=== PATIENT | female | born 1950 | race Caucasian/White ===

== ENCOUNTER → 2017-03-03 | Outpatient (CLI) | payer BC ==
[~2017-03-03] MED LIST: ADVIN25050 INH; CALC-5 PO; FIBER; MULT-506 PO; NAPR-1168 PO
--- NOTE | 2017-03-03 09:16 | DIAGNOSTIC IMAGING REPORT ---
RIGHT AXILLARY ULTRASOUND CLINICAL HISTORY: Right axillary pain. Possible lymphadenopathy. COMPARISON STUDY: No previous studies for comparison. FINDINGS: Ultrasonographic evaluation the right axilla reveals a single circumscribed subcutaneous hypoechoic nodule injuring 9 mm in long axis. A definite fatty hilum was not visualized. There were no abnormalities identified in the area of clinical symptomatology. IMPRESSION: Nonspecific subcutaneous 9 x 6 x 4 mm circumscribed hypoechoic nodule. This appears unrelated to the patient's area of reported pain Electronically signed by: Tyron Altman M.D. 03/03/2017 9:14 AM Dictated Date/Time: 03/03/2017 9:11 AM
== END | disposition home or self-care (01) ==
LOC: C.ULTRBC 08:18
PROVIDERS: ATTEND Family Medicine
DX: R22.31 Localized swelling, mass and lump, right upper limb (principal)

== ENCOUNTER → 2017-03-23 | Outpatient (CLI) | payer BC ==
--- NOTE | 2017-03-23 15:14 | DIAGNOSTIC IMAGING REPORT ---
LEFT KNEE 1 OR 2 VIEWS ROUTINE CLINICAL HISTORY: Left knee pain. No known injury. COMPARISON: Left knee radiograph August 24, 2014. FINDINGS: Alignment of left knee is anatomic. There is no fracture or suspicious lesion. There is a small to moderate left knee joint effusion. There is minimal medial compartment joint space narrowing. There is mild patellofemoral joint space narrowing with osteophytosis. IMPRESSION: 1. No acute fracture. 2. Small to moderate left knee joint effusion. 3. Moderate left knee osteoarthritis. Electronically signed by: Deep Qureshi M.D. 03/23/2017 3:13 PM Dictated Date/Time: 03/23/2017 3:08 PM
== END | disposition home or self-care (01) ==
LOC: C.RADBC 13:46
PROVIDERS: ATTEND Nurse Practitioner Family
DX: M25.562 Pain in left knee (principal); M25.462 Effusion, left knee; M17.12 Unilateral primary osteoarthritis, left knee

== ENCOUNTER → 2017-06-04 | Outpatient (CLI) | payer BC ==
--- NOTE | 2017-06-04 15:42 | MAMMOGRAPHY REPORT ---
BILATERAL DIGITAL SCREENING MAMMOGRAM TOMOSYNTHESIS WITH CAD: 06/04/2017 CLINICAL HISTORY: Routine screening. Patient has no complaints. TECHNIQUE: Breast tomosynthesis in addition to standard 2D mammography was performed. Current study was also evaluated with a Computer Aided Detection (CAD) system. COMPARISON: Comparison is made to exams dated: 05/29/2016 mammogram, 05/28/2015 mammogram, 05/24/2014 ma mmogram, 05/23/2013 mammogram, 05/18/2012 mammogram, and 10/30/2011 aspiration - [facility] nter. BREAST COMPOSITION: There are scattered areas of fibroglandular density in both breasts. FINDINGS: There are a few benign-appearing calcifications in the breasts. A nodular asymmetry in the lateral right breast appears similar on prior mammograms dating back to at least 2008, therefore lik hector benign. No new suspicious mass, architectural distortion or cluster of microcalcifications is se en. IMPRESSION: ACR BI-RADS CATEGORY 1: NEGATIVE There is no mammographic evidence of malignancy. A 1 year screening mammogram is recommended. The pa tient will receive written notification of the results. Approximately 10% of breast cancers are not detected with mammography. A negative mammographic report should not delay biopsy if a clinically suggestive mass is present. Shruthi Kwon M.D. ay/:06/04/2017 15:35:21 Child Welfare Counselor: Melissa BOOTH([place])(Lisa), [facility] letter sent: Normal 1/2 BI-RADS Code: ACR BI-RADS Category 1: Negative
== END | disposition home or self-care (01) ==
LOC: C.MAMM 08:44
PROVIDERS: ATTEND Family Medicine
DX: Z12.31 Encounter for screening mammogram for malignant neoplasm of breast (principal)

== ENCOUNTER → 2017-08-11 | Outpatient (CLI) | payer BC | END | disposition home or self-care (01) | LOC: C.RDSM 10:57 | PROVIDERS: ATTEND Orthopaedic Surgery Sports Medicine | DX: M79.671 Pain in right foot (principal) ==

== ENCOUNTER → 2017-08-17 | Outpatient (CLI) | payer BC ==
--- NOTE | 2017-08-17 10:07 | DIAGNOSTIC IMAGING REPORT ---
MRI OF THE RIGHT FOOT WITHOUT IV CONTRAST CLINICAL HISTORY: Right lateral foot pain. COMPARISON STUDY: Radiographs of the right foot dated 08/11/2017. TECHNIQUE: MRI of the right foot is performed utilizing various T1 and T2-weighted sequences in the axial, sagittal, and coronal planes. IV contrast was not administered for this examination. FINDINGS: There is marrow edema identified within the base and proximal shaft of the fifth metatarsal. This is deep to the indicated site of interest. There is a questionable non-distracted fracture line involving the proximal shaft of the fifth metatarsal. This is best seen on axial images 30 of 57 and sagittal image 7 of 28. This may represent a stress reaction versus non-distracted stress fracture. Additional foci of marrow edema are present between the second and third tarsometatarsal joints consistent with arthritic change. Mild cystic degenerative change is noted. Cystic degenerative change is also seen in the first metatarsal head. There is no evidence of Lisfranc injury. The anterior and posterior tendons at the ankle appear intact. There is mild thickening and tendinopathy of the peroneus longus tendon with mild partial-thickness tearing as it passes adjacent to the calcaneus. The peroneus brevis tendon appears intact. Enthesopathy is noted at the base of the fifth metatarsal. There is no ankle joint effusion. The Achilles tendon is intact as visualized. There is maintenance of normal fat within the sinus tarsi. The anterior talofibular ligament appears intact, as do the deltoid and spring ligaments. The regional musculature is normal in bulk and signal intensity. There is mild thickening of the medial band of the plantar fascia with faint surrounding edema. A plantar calcaneal enthesophyte is noted. IMPRESSION: 1. There is marrow edema identified in the base and proximal shaft of the fifth metatarsal. This is deep to the cutaneous marker and likely represents a stress reaction/non-distracted stress fracture. 2. Findings suggest mild plantar fasciitis involving the medial bundle of the plantar fascia. 3. There is tendinopathy with mild partial thickness tearing of the peroneus longus tendon. 4. Arthritic change in the midfoot as above, greatest at the second and third tarsometatarsal joints. Dictated: 08/17/2017 9:32 AM Transcribed: 08/17/2017 10:06 AM Anupam Electronically signed by: Delroy Deras M.D. 08/17/2017 10:23 AM Dictated Date/Time: 08/17/2017 9:32 AM
== END | disposition home or self-care (01) ==
LOC: C.MRI 07:35
PROVIDERS: ATTEND Orthopaedic Surgery Sports Medicine
DX: M79.671 Pain in right foot (principal); R60.0 Localized edema; M76.71 Peroneal tendinitis, right leg; M19.071 Primary osteoarthritis, right ankle and foot

== ENCOUNTER → 2018-06-10 | Outpatient (CLI) | payer BC ==
[~2018-06-10] MED LIST changes: -NAPR-1168 PO; +NAPR550T61 PO
--- NOTE | 2018-06-10 16:01 | MAMMOGRAPHY REPORT ---
BILATERAL DIGITAL SCREENING MAMMOGRAM TOMOSYNTHESIS WITH CAD: 06/10/2018 TECHNIQUE: The study was acquired using full field digital technology and interpreted from soft copy. Breast tomosynthesis in addition to standard 2D mammography was performed. Current study was also ev aluated with a Computer Aided Detection (CAD) system. COMPARISON: Comparison is made to exams dated: 05/29/2016 mammogram, 05/28/2015 mammogram, 05/24/2014 ma mmogram, 05/18/2012 mammogram, 10/30/2011 aspiration, and 06/04/2017 mammogram - [facility] enter. BREAST COMPOSITION: There are scattered areas of fibroglandular density in both breasts. FINDINGS: No suspicious masses, calcifications, or areas of architectural distortion are noted in either breast . There has been no significant interval change compared to prior exams. Bilateral lateral breast as ymmetries are stable. IMPRESSION: ACR BI-RADS CATEGORY 2: BENIGN There is no mammographic evidence of malignancy. A 1 year screening mammogram is recommended.( 019) The patient will receive written notification of the results. Some breast cancers are not detected with mammography. A negative mammographic report should not dm y biopsy if a clinically suggestive mass is present. Olivia Brown M.D. ah/:06/10/2018 09:01:41 Publisher Assistant: RT Rosalba([place])(M), [facility] letter sent: Normal 1/2 BI-RADS Code: ACR BI-RADS Category 2: Benign
== END | disposition home or self-care (01) ==
LOC: C.MAMM 08:44
PROVIDERS: ATTEND Family Medicine
DX: Z12.31 Encounter for screening mammogram for malignant neoplasm of breast (principal)

== ENCOUNTER 2019-08-30 04:57 | Inpatient (IN) ==
--- NOTE | 2019-08-04 16:11 | PAT Medication Instructions ---
Medication Instructions Date of Service August 04, 2019 Home Medications albuterol sulfate [Proventil HFA] 2 puff INHALATION QID PRN calcium carbonate-vitamin D3 [Calcium 600 + D(3)] 1 cap PO BID calcium polycarbophil [Fiber-Lax] 625 mg PO QAM fluticasone propion-salmeterol [Advair Diskus] 1 inh INHALATION BID PRN meloxicam 7.5 mg PO QAM prednisolone acetate [Pred Forte] 1 drp OPHTHALMIC (EYE) DAILY rizatriptan [Maxalt] 10 mg PO UD PRN ASK your surgeon for instructions meloxicam 7.5 mg PO QAM DO NOT take the morning of surgery calcium carbonate-vitamin D3 [Calcium 600 + D(3)] 1 cap PO BID calcium polycarbophil [Fiber-Lax] 625 mg PO QAM Take morning of surgery With a small sip of water, OTHERWISE NOTHING TO EAT OR DRINK AFTER MIDNIGHT: albuterol sulfate [Proventil HFA] 2 puff INHALATION QID PRN (use if needed; please bring with you to hospital day of surgery if possible) fluticasone propion-salmeterol [Advair Diskus] 1 inh INHALATION BID PRN (if needed) rizatriptan [Maxalt] 10 mg PO UD PRN (if needed) Take evening before surgery albuterol sulfate [Proventil HFA] 2 puff INHALATION QID PRN (if needed) calcium carbonate-vitamin D3 [Calcium 600 + D(3)] 1 cap PO BID fluticasone propion-salmeterol [Advair Diskus] 1 inh INHALATION BID PRN (if needed) rizatriptan [Maxalt] 10 mg PO UD PRN (if needed) Other Notes If you have any questions please call us at [phone] or [phone] or [phone] or [phone]
--- NOTE | 2019-08-08 14:44 | Anesthesiology Consultation ---
Date of Service August 08, 2019 Assessment & Plan (1) Encounter for pre-operative examination: - Awaiting review preop testing (labs). - Awaiting surgeon-ordered PCP clearance done 08/05 (Dr. Simons). Chart Review Chart Review: Patient seen in Pre Admission Testing Teaching & Discussion Pre-Anesthesia Teaching/Discussion Notes: Instructed NPO after midnight before surgery,except medications with 15 cc of water. Medication instructions provided according to the PAT guidelines. History Surgery Operation Date: 08/30/19 07:00 Proposed Procedures p Right Total Knee Arthroplasty - Ralph El Siu MD Height/Weight Height: 5 ft 9 in Weight: 90.2 kg Allergies Allergy/AdvReac Type Severity Reaction Status Date / Time Tetanus Vaccines and Toxoid Allergy Severe Anaphylaxis Verified 08/01/19 10:38 Penicillins Allergy Intermediate breathing Unverified 08/08/19 14:43 issues Medications Home Medications Medication Instructions Recorded Confirmed Last Taken albuterol sulfate [Proventil HFA] 2 puff INHALATION QID PRN 08/01/19 08/01/19 Unknown calcium carbonate-vitamin D3 1 cap PO BID 08/01/19 08/01/19 Unknown [Calcium 600 + D(3)] calcium polycarbophil [Fiber-Lax] 625 mg PO QAM 08/01/19 08/01/19 Unknown fluticasone propion-salmeterol 1 inh INHALATION BID PRN 08/01/19 08/01/19 Unknown [Advair Diskus] meloxicam 7.5 mg PO QAM 08/01/19 08/01/19 Unknown prednisolone acetate [Pred Forte] 1 drp OPHTHALMIC (EYE) DAILY 08/01/19 08/01/19 Unknown rizatriptan [Maxalt] 10 mg PO UD PRN 08/01/19 08/01/19 Unknown Past Medical History Medical History Asthma stable Cervical cancer s/p hysterectomy (no chemo/XRT) Diverticulitis 5 years ago Glaucoma "pre-glaucoma" Headache Maxalt PRN Osteoarthritis Skin cancer, basal cell s/p Moh's procedure (nose) Spinal stenosis Exercise / Class Metabolic Activity II 4-5 Yardwork/Stairs/Walk up hill Past Family History Family History Aunt Family history of diabetes mellitus Mother Family hx of colon cancer Past Surgical History Surgical History Cornea transplant recipient RIGHT/LEFT H/O total hysterectomy History of arthroscopy RT/LEFT KNEE History of colonoscopy History of tonsillectomy Barton teeth removed Past Anesthesia History No Hx of Anesthesia Complications and No Family Hx of Anesthesia Complications History of PONV No Hx of PONV and No Hx of Motion Sickness Social History Smoking Status: Never smoker Do You Dip or Chew Tobacco: No Hx Alcohol Use: No Hx Substance Use: No substance use type: does not use Review of Systems Patient denies chest pain, shortness of breath, dyspnea on exertion, reflux, cough, wheezing, palpitations. Physical Exam Vital Signs VITALS BP 109/71 P 68 TEMP 98.4 SP02 94%RA RESP 18 PHYSICAL Full neck and c-spine range of motion. Full TMJ range of motion. TMD 3 finger breaths Mallampati Score 3 Dentition: intact, several crowns "all over" Lungs: clear throughout to auscultation Cardiac: regular rate and rhythm, no murmurs noted Spine: normal Carotid arteries: negative bruit Extremities: no edema Testing Electrocardiogram Date: 12/13/18 SR at 66bpm. NS ST/TWA.
[2019-08-08 15:55] LABS: Basophils # (auto) 0.04 K/uL (0-0.2); Basophils % (auto) 0.6 %; Eosinophils # (auto) 0.31 K/uL (0-0.5); Eosinophils % (auto) 4.9 %; Hematocrit (blood only) 40.2 % (37-47); Immature Granulocytes # (auto) 0.01 K/uL (0.00-0.02); Immature Granulocytes % (auto) 0.2 %; Lymphocytes # (auto) 1.38 K/uL (1.2-3.4); Mean Corpuscular Hemoglobin 28.6 pg (25-34); Mean Corpuscular Hgb Conc 32.3 g/dL (32-36); Mean Corpuscular Volume 88.4 fL (80-100); Mean Platelet Volume 12.2 fL (7.4-10.4); Monocytes # (auto) 0.48 K/uL (0.11-0.59); Monocytes % (auto) 7.6 %; Neutrophils # (auto) 4.06 K/uL (1.4-6.5); Neutrophils % (auto) 64.7 %; Platelet Count 210 K/uL (130-400); RDW Coefficient of Variation 13.9 % (11.5-14.5); RDW Standard Deviation 45.1 fL (36.4-46.3); Red Blood Count 4.55 M/uL (4.2-5.4); White Blood Count 6.28 K/uL (4.8-10.8)
[2019-08-08 16:04] LABS: Albumin Level 3.6 gm/dl (3.4-5.0); BUN Creatinine Ratio 17.5 (10-20); Bilirubin Direct 0.1 mg/dl (0-0.2); Calcium 8.9 mg/dl (8.5-10.1); Creatinine Clr Calc Pharmacy 75.8 ml/min; Est GFR (African American) 81.6; Est GFR (Non-African American) 70.4; Potassium 3.9 mmol/L (3.5-5.1)
[2019-08-08 16:07] LABS: Bilirubin,Total 0.6 mg/dl (0.2-1); Total Protein 6.9 gm/dl (6.4-8.2)
[2019-08-08 16:10] LABS: Partial Thromboplastin Time 27.3 Seconds (21.0-31.0); Prothrombin Time 10.3 Seconds (9.0-12.0)
[2019-08-30] MEDS ORDERED: TRANEXAMIC ACID 1,000 MG **IV Pre-op IV SCH (06:00)
[2019-08-30] MEDS ORDERED: CeleBREX 200 MG CAP PO SCH (06:00)
[2019-08-30] MEDS ORDERED: ROPIVACAINE 0.5% HCL/PF 150 MG, BUPIVACAINE 0.5% MPF 30 ML, EPINEPHrine 0.15 MG, Ketoro... INFIL SCH (06:00)
[2019-08-30] MEDS ORDERED: LR 60ML/HR IV SCH (06:00)
[2019-08-30] MEDS ORDERED: LR 500ML BOLUS, THEN 15ML/HR IV SCH (06:00)
[2019-08-30] MEDS ORDERED: CEFAZOLIN 2000MG 2,000 MG/15 ML SYR IV SCH (06:00)
[2019-08-30] MEDS ORDERED: BUPIVACAINE 0.5 % 5 MG/1 ML PF 10ML VIAL ONE (06:28)
[2019-08-30] MEDS ORDERED: EPINEPHrine INJ 1 MG/ML AMP ONE (06:28)
[2019-08-30] MEDS ORDERED: ROPIVACAINE 0.5% 5 MG/ML 30 ML VIAL ONE (06:28)
[2019-08-30] MEDS ORDERED: TRANEXAMIC ACID 1,000 MG **IV Intra-op IV SCH (06:30)
--- NOTE | 2019-08-30 06:35 | History & Physical Bridge Note ---
Date of Service August 30, 2019 History & Physical Bridge Note I have examined the patient, reviewed the History & Physical and in the interval since the performance of the History & Physical I have noted the following changes of clinical significance: no changes noted
[2019-08-30] MEDS ORDERED: MIDAZOLAM HCL 1 MG/ML 2ML VIAL ONE (06:40)
[2019-08-30] MEDS ORDERED: LIDOCAINE HCL 2% 2 ML VIAL/AMP(20MG/ML) INFIL ONE (06:40)
[2019-08-30] MEDS ORDERED: PROPOFOL IV EMULSION 10 MG/ML 20 ML VIAL IV ONE (06:40)
[2019-08-30] MEDS ORDERED: fentaNYL citrate 100 MCG/2 ML VIAL ONE (06:40)
[2019-08-30] MEDS ORDERED: ePHEDrine sulfate 50 MG/ML AMP IV PRN (06:49)
[2019-08-30] MEDS ORDERED: ONDANSETRON INJ 2 MG/ML 2 ML VIAL IV PRN ×2 (06:49→10:05)
[2019-08-30] MEDS ORDERED: HYDROmorphone INJ 1 MG/ML SYRINGE IV PRN ×2 (06:49→10:05)
[2019-08-30] MEDS ORDERED: ATROPINE SULFATE 0.1 MG/ML 10ML SYR IV PRN (06:49)
[2019-08-30] MEDS ORDERED: fentaNYL citrate 100 MCG/2 ML VIAL IV PRN (06:49)
[2019-08-30] MEDS ORDERED: ORTHO JOINT ANESTHETIC ONE (06:55)
[2019-08-30] MEDS ORDERED: HYDROmorphone INJ 2 MG/ML SYR/VIAL ONE (07:49)
--- NOTE | 2019-08-30 09:48 | Post Operative Brief Note ---
Immediate Post Op Note v1 Date of Surgery August 30, 2019 Pre & Post Diagnosis Operation Date: 08/30/19 07:00 Pre-Op Diagnosis: Osteoarthritis of Knee, Right Knee Post-Op Diagnosis: Osteoarthritis of Knee, Right Knee I identified the patient and participated in the time-out.: Yes Procedure Operation Date: 08/30/19 07:00 Actual Procedures p Right Total Knee Arthroplasty(Right) - Ralph Siu MD Surgeon Ralph Siu MD Personal Lines Account Manager Minnie Lane PA-C (No fellow avail) Estimated Blood Loss 120 Findings Consistent with Post-Op Diagnosis Fluids 800 cc Specimens Right knee contents Anesthesia Type General Regional Complications none
--- NOTE | 2019-08-30 09:48 | Operative Report ---
Post Operative Report Pre & Post Diagnosis Operation Date: 08/30/19 07:00 Pre-Op Diagnosis: Osteoarthritis of Knee, Right Knee Post-Op Diagnosis: Osteoarthritis of Knee, Right Knee I identified the patient and participated in the time-out.: Yes Procedure Operation Date: 08/30/19 07:00 Actual Procedures p Right Total Knee Arthroplasty(Right) - Ralph Siu MD Surgeon Ralph Siu MD Harness Worker Minnie Lane PA-C (No fellow avail) Estimated Blood Loss 120 Findings See Below Examined Under Anesthesia: ROM -- There was 5 degrees to 135 degrees of flexion Ligamentous examination -- revealed stable Luz Marina, posterior drawer, varus and valgus stress at 0 and 30 degrees. [place] Type IV changes of patella and medial compartment, type III changes of the trochlea and lateral femoral condyle, type II changes of the lateral tibial plateau. Fluids 800 cc Specimens Right knee contents Drains n/a Anesthesia Type General Regional Complications none Indications This is a 69-year-old female who has clinical and radiographic findings consistent with osteoarthritis of the a right knee. I recommended that a right total knee replacement be performed. The patient understands the risks of surgery, which include but not limited to: bleeding, infection, re-operation, damage to nerves and arteries, continued knee pain, knee stiffness, DVT, and . The patient understands all of these instructions and explanations, all of his questions have been satisfactorily addressed and the patient has elected to proceed. Informed consent was signed. Description of Procedure IMPLANTS: 1. Femur: Triathlon #4 Right PS. 2. Tibia: Triathlon #3 [place]. 3. Insert: Triathlon #3 x 11 mm PS X3 poly. 4. Patella: Triathlon A32 x 10 mm X3 poly. 5. Simplex cement. Procedure: After identifying the correct patient, the patient was taken to the Operating Room and placed in the supine position after general anesthesia and adductor canal nerve block was administered. My initials and a multidisciplinary time- out were used to identify the right leg as the correct operative limb. A tourniquet was placed high in the thigh. Prior to the incision, 2 grams of intravenous Ancef were given. The right leg was then prepped and draped in a standard sterile fashion. An Esmarch was used to exsanguinate the leg and the tourniquet was inflated to 250 mmHg. The planned mid-line 20 cm incision was created exposing the extensor mechanism. The medial parapatellar arthrotomy was made and the patella was everted. The patella was addressed first. It was prepared by reaming from 22 mm down to 12 mm. An A32 button was found to fit best. The peg holes were made in the standard fashion. The femur was addressed next and the guide katia was placed intramedullary. The initial cutting block was placed with 5 degrees of valgus and removing 10 mm for the anterior cut. The cut was made and the 4-in-1 cutting block for a size 4 femur was placed. These cuts and the cuts to place the box were made in the standard fashion. Our attention was then drawn to the tibia cut with the external cutting guide, taking 4 mm from the medial low side. There was sufficient extension and flexion gap to fit a 11 mm spacer. A #3 Tibial baseplate fit well. A trial with a 11 mm spacer showed excellent stability in both flexion and extension, with good ligament balance. Range of motion of 0-130 degrees. The tibial baseplate was pinned and the final preparation for the keel and stem was made. All the trial components were tested again, with good stability and thumbs free tracking of the patella. All components were removed. The tourniquet was deflated. Hemostasis was obtained. 90 ml of total knee cocktail were injected into the soft tissues and periosteum. A bone plug was placed in the femur and covered with bone wax. After a 15 minute break, the limb was exsanguinated again and the tourniquet was re-inflated. All surfaces were copiously irrigated prior to placement of the components. The femoral component and Tibial baseplate were placed with the first batch of cement and a 11 mm trial placed. Next the patellar button was placed using Simplex cement. Again with the 11 mm trial poly was placed and the range of motion and stability were unchanged. Once the cement had cured, the 11 mm X3 poly was placed. The extensor mechanism was closed with 1-0 and 0 Vicryl with the knee bent approximately 60 degrees in a standard fashion. The peritenon and deep fascia was closed with 2-0 Vicryl. The subcutaneous layer was closed with 3-0 Vicryl. The skin was closed with Zipline. The limb was cleaned and dried. 4x4 dressing was placed over top followed by ABDs, sterile Webril, and a foot to thigh Randy bandage. The patient was then transferred to the Recovery Room in stable condition. The sponge and needle counts were correct. POST-OP INSTRUCTIONS: The patient will be WBAT. The patient will be admitted to the hospital. The patient will use the knee immobilizer when ambulating and standing until good quad control is achieved. Labs will be obtained during the stay. DVT prophylaxis will included aspirin 81 mg twice a day for 6 more weeks, TEDs, and mechanical foot pumps. The dressing will be changed prior to their discharge or postop day #2 and covered with a Silverlon dressing, whichever comes first. I attest to the content of the Intraoperative Record and any orders documented therein. Any exceptions are noted below.
[2019-08-30] MEDS ORDERED: RIZATRIPTAN BENZOATE 10 MG TAB PO PRN (10:05)
[2019-08-30] MEDS ORDERED: MAGNESIUM HYDROXIDE SUSP 30 ML UDC PO PRN (10:05)
[2019-08-30] MEDS ORDERED: ALBUTEROL HFA 8 GM INHALER INH PRN (10:05)
[2019-08-30] MEDS ORDERED: SODIUM CHLORIDE 0.9% 1000ML 1,000 ML IV SCH (10:05)
[2019-08-30] MEDS ORDERED: DiphenhydrAMINE HCL 50 MG/ML VIAL IV PRN (10:05)
[2019-08-30] MEDS ORDERED: bisacodyL 10 MG SUPP PR PRN (10:05)
[2019-08-30] MEDS ORDERED: FLUTICASONE/SALMETEROL (ADVAIR) 500/50 INH 14 PUFF INH PRN (10:05)
[2019-08-30] MEDS ORDERED: NALOXONE HCL 0.4 MG/1 ML VIAL/CARP IV PRN (10:05)
[2019-08-30] MEDS ORDERED: METOCLOPRAMIDE HCL INJ 5 MG/ML 2 ML VIAL IV PRN (10:05)
[2019-08-30] MEDS ORDERED: ALUMINUM/MAGNESIUM SUSP 30 ML UDC PO PRN (10:05)
--- NOTE | 2019-08-30 10:21 | XRay Report ---
XR knee RT 2V routine CLINICAL HISTORY: 69 years-old Female presenting with Surgical Post Op. TECHNIQUE: Frontal and lateral views of the right knee were obtained. COMPARISON: 08/08/2019. FINDINGS: Postsurgical changes of total right knee arthroplasty with patellar resurfacing. No periprosthetic fr acture or lucency. No malalignment. Expected intra-articular and soft tissue emphysema. Mild surround ing soft tissue swelling. IMPRESSION: Expected postsurgical changes status post total right knee arthroplasty with patellar resurfacing. Electronically signed by: Mu Mei M.D. 08/30/2019 10:20 AM
--- NOTE | 2019-08-30 10:44 | Anesthesiology Progress Note ---
Date of Service August 30, 2019 Anesthesia Post Procedure Vital Signs Vital Signs: Temp Pulse Pulse Pulse Resp BP BP 08/30/19 10:36 85 14 118/62 08/30/19 10:35 89 12 08/30/19 10:31 66 14 08/30/19 10:30 66 14 119/65 08/30/19 10:26 85 14 08/30/19 10:25 75 14 128/76 08/30/19 10:21 80 17 130/70 08/30/19 10:20 14 08/30/19 10:16 84 14 08/30/19 10:15 82 14 139/69 08/30/19 10:11 86 12 08/30/19 10:10 75 14 134/76 08/30/19 10:06 85 14 123/81 08/30/19 10:05 90 15 08/30/19 10:01 68 13 08/30/19 10:00 69 13 124/63 08/30/19 09:57 68 14 08/30/19 09:56 36.7 C 68 73 14 120/62 120/62 08/30/19 05:22 37 C 73 18 BP Pulse Ox 08/30/19 10:36 99 08/30/19 10:35 96 08/30/19 10:31 95 08/30/19 10:30 94 08/30/19 10:26 97 08/30/19 10:25 92 08/30/19 10:21 95 08/30/19 10:20 98 08/30/19 10:16 99 08/30/19 10:15 100 08/30/19 10:11 100 08/30/19 10:10 99 08/30/19 10:06 100 08/30/19 10:05 100 08/30/19 10:01 99 08/30/19 10:00 99 08/30/19 09:57 98 08/30/19 09:56 98 08/30/19 05:22 139/89 97 Pain Intensity Right Knee: Pain Intensity: 3 Transfer of Care Handoff Completed per policy Notes Mental Status: alert / awake / arousable and participated in evaluation Patient Amnestic to Procedure: Yes Nausea / Vomiting: adequately controlled Pain: adequately controlled Airway Patency, RR, SpO2: stable & adequate BP & HR: stable & adequate Hydration State: stable & adequate Anesthetic Complications: no major complications apparent and Pt Satisfied with anesthetic care
[2019-08-30] MEDS ORDERED: DEXAMETHASONE SOD INJ 4 MG/ML VIAL ONE (10:48)
[2019-08-30] MEDS ORDERED: ONDANSETRON INJ 2 MG/ML 2 ML VIAL ONE (10:49)
[2019-08-30] MEDS: OXYCODONE HCL IR 5 MG TAB (IMMEDIATE RELEASE) PO PRN ×3 (11:51→20:46)
--- NOTE | 2019-08-30 11:58 | Operative Report ---
Post Operative Report Pre & Post Diagnosis Operation Date: 08/30/19 07:00 Pre-Op Diagnosis: Osteoarthritis of Knee, Right Knee Post-Op Diagnosis: Osteoarthritis of Knee, Right Knee I identified the patient and participated in the time-out.: Yes Procedure Operation Date: 08/30/19 07:00 Actual Procedures p Right Total Knee Arthroplasty(Right) - Ralph Siu MD Surgeon Dr Siu Armor Reconnaissance Vehicle Crewman Minnie Lane PA-C (No fellow avail) Estimated Blood Loss 120 Findings Consistent with Post-Op Diagnosis Specimens bone and soft tissue Complications none Indications See Dr Siu operative report for full details. Description of Procedure See Dr Siu operative report for full details. I was event marketing assistant during entire case to include prepping, draping, limb and instrument handling, wound closure, dressings. I attest to the content of the Intraoperative Record and any orders documented therein. Any exceptions are noted below.
[2019-08-30] MEDS ORDERED: ACETAMINOPHEN 500 MG TAB PO PRN (12:00)
[2019-08-30] MEDS: CEFAZOLIN 2000MG 2,000 MG/15 ML SYR IV SCH ×2 (14:38→22:19)
--- NOTE | 2019-08-30 16:23 | Orthopedic Progress Note ---
Date of Service August 30, 2019 Assessment & Plan (1) Knee osteoarthritis: POD # 0, s/p Right TKA, doing as well as expected. Regular diet. WBAT with walker, brace for 48 hours or until good quad control. Dressing changed to Silverlon POD # 2 or prior to discharge, whichever comes first. PT/OT Continue pain control. DVT Prophylaxis: TEDs on operative leg for minimum 2 weeks, foot pumps while in hospital, ASA 81 mg BID for 6 weeks. Check labs in am. D/C planning. Present on Admission?: Yes Subjective feeling ok Review of Systems Review of Systems: All systems reviewed & are unremarkable except as noted in HPI & below Physical Exam Physical Exam: RLE: dressing clean, dry, intact. Calf soft and non-tender. wiggling toes up and down. Able to preform a straight leg raise. Sensation to Light touch diminished. Results & Data Vital Signs (Past 12 Hours) Vital Signs Temp Pulse Pulse Pulse Pulse Resp BP 08/30/19 14:00 67 18 08/30/19 13:06 36.5 C 66 16 08/30/19 12:01 58 L 18 08/30/19 11:25 64 18 08/30/19 11:00 36.7 C 72 16 08/30/19 10:50 36.7 C 08/30/19 10:45 63 14 122/77 08/30/19 10:41 79 14 08/30/19 10:40 79 13 135/71 08/30/19 10:37 73 14 08/30/19 10:36 85 14 118/62 08/30/19 10:35 89 12 08/30/19 10:31 66 14 08/30/19 10:30 66 14 119/65 08/30/19 10:26 85 14 08/30/19 10:25 75 14 128/76 08/30/19 10:21 80 17 130/70 08/30/19 10:20 14 08/30/19 10:16 84 14 08/30/19 10:15 82 14 139/69 08/30/19 10:11 86 12 08/30/19 10:10 75 14 134/76 08/30/19 10:06 85 14 123/81 08/30/19 10:05 90 15 08/30/19 10:01 68 13 10/15/19 10:00 69 13 124/63 10/15/19 09:57 68 14 08/30/19 09:56 36.7 C 68 73 14 120/62 08/30/19 05:22 37 C 73 18 BP BP Pulse Ox 08/30/19 14:00 115/71 100 08/30/19 13:06 123/76 98 08/30/19 12:01 113/71 100 08/30/19 11:25 130/78 94 08/30/19 11:00 125/73 125/73 99 08/30/19 10:50 93 08/30/19 10:45 95 08/30/19 10:41 97 08/30/19 10:40 98 08/30/19 10:37 95 08/30/19 10:36 99 08/30/19 10:35 96 08/30/19 10:31 95 08/30/19 10:30 94 08/30/19 10:26 97 08/30/19 10:25 92 08/30/19 10:21 95 08/30/19 10:20 98 08/30/19 10:16 99 08/30/19 10:15 100 08/30/19 10:11 100 08/30/19 10:10 99 08/30/19 10:06 100 08/30/19 10:05 100 08/30/19 10:01 99 08/30/19 10:00 99 08/30/19 09:57 98 08/30/19 09:56 120/62 98 08/30/19 05:22 139/89 97 Diagnostic Findings AP & Lateral Right knee, show components cemented in place, good alignment.
[2019-08-30] MEDS: FERROUS GLUCONATE 324 MG TAB PO SCH (16:54)
[2019-08-30] MEDS: ASCORBIC ACID 500 MG TAB PO SCH (16:54)
[2019-08-30] MEDS: ASPIRIN 81 MG ECTAB PO SCH (20:42)
[2019-08-30] MEDS: SENNA 8.6 MG TAB PO SCH (20:42)
[2019-08-30] MEDS: CALCIUM 600MG + VIT D 400 IU TAB PO SCH (20:42)
[2019-08-30] MEDS: DOCUSATE SODIUM 100 MG CAP PO SCH (20:42)
[2019-08-31] MEDS: OXYCODONE HCL IR 5 MG TAB (IMMEDIATE RELEASE) PO PRN ×5 (03:27→21:54)
[2019-08-31 05:02] LABS: Hematocrit (blood only) 32.8 % (37-47); Mean Corpuscular Hemoglobin 29.2 pg (25-34); Mean Corpuscular Hgb Conc 33.5 g/dL (32-36); Mean Platelet Volume 12.3 fL (7.4-10.4); Platelet Count 163 K/uL (130-400); RDW Coefficient of Variation 13.7 % (11.5-14.5); RDW Standard Deviation 43.7 fL (36.4-46.3); Red Blood Count 3.77 M/uL (4.2-5.4); White Blood Count 11.79 K/uL (4.8-10.8)
[2019-08-31 05:46] LABS: BUN Creatinine Ratio 18.3 (10-20); Calcium 8.6 mg/dl (8.5-10.1); Creatinine Clr Calc Pharmacy 80.1 ml/min; Est GFR (African American) 87.8; Est GFR (Non-African American) 75.8; Potassium 4.1 mmol/L (3.5-5.1)
[2019-08-31] MEDS: DOCUSATE SODIUM 100 MG CAP PO SCH ×2 (08:24→20:50)
[2019-08-31] MEDS: MULTIVITAMIN TAB PO SCH (08:25)
[2019-08-31] MEDS: CALCIUM 600MG + VIT D 400 IU TAB PO SCH ×2 (08:25→20:50)
[2019-08-31] MEDS: FERROUS GLUCONATE 324 MG TAB PO SCH ×2 (08:25→17:43)
[2019-08-31] MEDS: prednisoLONE acetate 1% OP SUSP 5 ML BTL OP SCH (08:25)
[2019-08-31] MEDS: ASPIRIN 81 MG ECTAB PO SCH ×2 (08:25→20:50)
[2019-08-31] MEDS: ASCORBIC ACID 500 MG TAB PO SCH ×2 (08:26→17:43)
[2019-08-31] MEDS: CALCIUM POLYCARBOPHIL 625MG TAB PO SCH (08:26)
[2019-08-31] MEDS: FLUTICASONE/SALMETEROL (ADVAIR) 500/50 INH 14 PUFF INH SCH ×2 (08:26→20:50)
--- NOTE | 2019-08-31 10:10 | Orthopedic Progress Note ---
Date of Service August 31, 2019 Assessment & Plan (1) Knee osteoarthritis: POD # 1, s/p Right TKA, doing as well as expected. Regular diet. WBAT with walker, brace for 48 hours or until good quad control. Dressing changed to Silverlon POD # 2 or prior to discharge, whichever comes first. PT/OT Continue pain control. DVT Prophylaxis: TEDs on operative leg for minimum 2 weeks, foot pumps while in hospital, ASA 81 mg BID for 6 weeks. D/C planning. Subjective Right knee pain. Leg feels heavy. Review of Systems Review of Systems: All systems reviewed & are unremarkable except as noted in HPI & below Physical Exam Physical Exam: Patient was walking the marcus with PT using walker and immobilizer. RLE: Dressing clean, dry, intact. Calf soft and non-tender. Neurovascularly intact. Able to preform straight leg raise, with some assistance from opposite leg. Results & Data Vital Signs (Past 12 Hours) Vital Signs Temp Pulse Resp BP Pulse Ox 08/31/19 07:00 36.8 C 76 18 108/68 99 08/31/19 03:12 36.7 C 72 16 122/69 99 08/30/19 23:24 37.1 C 70 16 105/65 97 Laboratory Results 08/31/19 08/31/19 08/31/19 Range/Units 04:30 04:30 04:30 WBC 11.79 H (4.8-10.8) K/uL RBC 3.77 L (4.2-5.4) M/uL Hgb 11.0 L (12.0-16.0) g/dL Hct 32.8 L (37-47) % MCV 87.0 (80-100) fL MCH 29.2 (25-34) pg MCHC 33.5 (32-36) g/dL RDW Std Deviation 43.7 (36.4-46.3) fL RDW Coeff of Eric 13.7 (11.5-14.5) % Plt Count 163 (130-400) K/uL MPV 12.3 H (7.4-10.4) fL Sodium 137 (136-145) mmol/L Potassium 4.1 (3.5-5.1) mmol/L Chloride 106 (98-107) mmol/L Carbon Dioxide 27 (21-32) mmol/L Anion Gap 4.0 (3-11) BUN 15 (7-18) mg/dl Creatinine 0.80 (0.6-1.2) mg/dl Est Cr Clr Drug Dosing 80.1 ml/min Est GFR ( Amer) 87.8 Est GFR (Non-Af Amer) 75.8 BUN/Creatinine Ratio 18.3 (10-20) Glucose 108 H (70-99) mg/dl Calcium 8.6 (8.5-10.1) mg/dl Hepatitis C Ab Screen Neg (Neg)
--- NOTE | 2019-08-31 11:32 | Hospitalist Progress Note ---
Date of Service August 31, 2019 Assessment & Plan (1) S/P total knee arthroplasty: POD #1 s/p right TKA. Pain management as per orthopedic team Post op labs reviewed with nothing concerning. Vital signs appear stable post operatively. (2) Asthma: Continue maintenance inhaler (Advair) given wheezing on pre-op exam note. Otherwise well controlled. No wheezing on exam today. (3) DVT prophylaxis: As per orthopedic primary team recommendations Thank you for the consult. No acute or chronic medical conditions need managing at this time. We will sign off given anticipated discharge tomorrow, please call if further advice required. Subjective Patient reports doing well post operatively. Feeling back to her normal self with the exception of her knee. Fully aware of importance of physical therapy. Reports asthma much worse before in the past and isn't sure she really needs her maintenance inhaler anymore however wheezing heard on pre-op exam so has been taking this for the last few weeks leading up to the operation. No current wheezing or shortness of breath. Review of Systems Review of Systems: All systems reviewed & are unremarkable except as noted in HPI & below Physical Exam Constitutional: WD/WN, vitals as above Eyes: normal pupil size ENMT: external ear and nose normal, oropharynx normal Neck: trachea midline, no thyromegaly Respiratory: normal respiratory effort, lungs clear to auscultation Auscultation: no crackles and no wheezes Cardiovascular: RRR, no murmur, no edema Gastrointestinal (Abdomen): normal bowel sounds, soft, nontender, no hepatosplenomegaly Musculoskeletal: no cyanosis or clubbing, extremities motor strength 5/5 (NV intact distal to operation site) Neurologic: moves all extremities (did not exam right leg due to recent surgery, but ankle/toe movements azael) and awake; no focal motor deficits Psychiatric: A+Ox3, euthymic affect Results & Data Vital Signs (Past 12 Hours) Vital Signs Temp Pulse Resp BP Pulse Ox 08/31/19 07:00 98.2 F 76 18 108/68 99 08/31/19 03:12 98.1 F 72 16 122/69 99 PG Care Time/CCT Total # of Minutes Spent Total Time Spent with Patient: Total time spent is greater than 50% in coordination of care (as documented) at patient's floor/unit and/or counseling patient: (1) Asthma Asthma severity: unspecified severity Asthma persistence: unspecified Asthma complication type: uncomplicated Qualified Code(s): J45.909 - Unspecified asthma, uncomplicated
--- NOTE | 2019-08-31 15:39 | Orthopedic Progress Note ---
Date of Service August 31, 2019 Assessment & Plan (1) Knee osteoarthritis: POD # 1, s/p Right TKA, doing as well as expected. Continue regular diet. Continue PT/OT; WBAT with walker, brace for 48 hours or until good quad control. Therapy to work on ambulating tomorrow without the brace and use steps. Dressing to be changed tomorrow to silverlon. Continue pain control. DVT Prophylaxis: TEDs on operative leg for minimum 2 weeks, foot pumps while in hospital, ASA 81 mg BID for 6 weeks. D/C plan for tomorrow. Plans for Home Health PT. Subjective Patient working with physical therapist. Denies cp, SOB, F/C/S, N/V, lightheadedness, or dizziness. Pain controlled with PRN narcotics. Tolerating regular diet. Voiding. Says she has been a little tired today but is feeling better after working with therapy. After discussing discharge planning with her and therapist, we all agreed home tomorrow would be in her best interest. She is hoping to get another round of therapy in tomorrow before discharge. Physical Exam Physical Exam: dressings to right leg intact. left leg with darron hose. B LE NV intact with intact sensation to touch, palpable DP and PT pulses, soft calves. Able to dorsiflex foot and wiggle toes. Results & Data Vital Signs (Past 12 Hours) Vital Signs Temp Pulse Resp BP Pulse Ox 08/31/19 13:15 37.0 C 87 18 123/70 99 08/31/19 07:00 36.8 C 76 18 108/68 99 Laboratory Results 08/31/19 08/31/19 08/31/19 Range/Units 04:30 04:30 04:30 WBC 11.79 H (4.8-10.8) K/uL RBC 3.77 L (4.2-5.4) M/uL Hgb 11.0 L (12.0-16.0) g/dL Hct 32.8 L (37-47) % MCV 87.0 (80-100) fL MCH 29.2 (25-34) pg MCHC 33.5 (32-36) g/dL RDW Std Deviation 43.7 (36.4-46.3) fL RDW Coeff of Eric 13.7 (11.5-14.5) % Plt Count 163 (130-400) K/uL MPV 12.3 H (7.4-10.4) fL Sodium 137 (136-145) mmol/L Potassium 4.1 (3.5-5.1) mmol/L Chloride 106 (98-107) mmol/L Carbon Dioxide 27 (21-32) mmol/L Anion Gap 4.0 (3-11) BUN 15 (7-18) mg/dl Creatinine 0.80 (0.6-1.2) mg/dl Est Cr Clr Drug Dosing 80.1 ml/min Est GFR ( Amer) 87.8 Est GFR (Non-Af Amer) 75.8 BUN/Creatinine Ratio 18.3 (10-20) Glucose 108 H (70-99) mg/dl Calcium 8.6 (8.5-10.1) mg/dl Hepatitis C Ab Screen Neg (Neg)
[2019-08-31] MEDS: SENNA 8.6 MG TAB PO SCH (20:50)
--- NOTE | 2019-09-01 | Hospitalist Consultation ---
Date of Consultation August 31, 2019 Assessment & Plan (1) S/P total knee arthroplasty: POD #1 s/p right TKA. Pain management as per orthopedic team Post op labs reviewed with nothing concerning. Vital signs appear stable post operatively. (2) Asthma: Continue maintenance inhaler (Advair) given wheezing on pre-op exam note. Otherwise well controlled. No wheezing on exam today. (3) DVT prophylaxis: As per orthopedic primary team recommendations Thank you for the consult. No acute or chronic medical conditions need managing at this time. We will sign off given anticipated discharge tomorrow, please call if further advice required. History of Present Illness Attending Physician: Ralph Siu MD History of Present Illness POD#1 from right TKA due to knee OA. Patient reports doing well post operatively. Feeling back to her normal self with the exception of her knee. Fully aware of importance of physical therapy. Reports asthma much worse before in the past and isn't sure she really needs her maintenance inhaler anymore however wheezing heard on pre-op exam so has been taking this for the last few weeks leading up to the operation. No current wheezing or shortness of breath. Allergies Allergy/AdvReac Type Severity Reaction Status Date / Time Tetanus Vaccines and Toxoid Allergy Severe Anaphylaxis Verified 08/30/19 05:18 Penicillins Allergy Intermediate breathing Verified 08/30/19 05:18 issues Home Medications Home Medications Medication Instructions Recorded Confirmed Type albuterol sulfate [Proventil HFA] 2 puff INHALATION QID PRN 08/01/19 08/30/19 History calcium carbonate-vitamin D3 1 cap PO BID 08/01/19 08/30/19 History [Calcium 600 + D(3)] calcium polycarbophil [Fiber-Lax] 625 mg PO QAM 08/01/19 08/30/19 History fluticasone propion-salmeterol 1 inh INHALATION BID PRN 08/01/19 08/30/19 History [Advair Diskus] meloxicam 7.5 mg PO QAM 08/01/19 08/30/19 History prednisolone acetate [Pred Forte] 1 drp OPHTHALMIC (EYE) DAILY 08/01/19 08/30/19 History rizatriptan [Maxalt] 10 mg PO UD PRN 08/01/19 08/30/19 History Patient History Medical History Asthma stable Cervical cancer s/p hysterectomy (no chemo/XRT) Diverticulitis 5 years ago Glaucoma "pre-glaucoma" Headache Maxalt PRN Osteoarthritis Skin cancer, basal cell s/p Moh's procedure (nose) Spinal stenosis Surgical History Cornea transplant recipient RIGHT/LEFT H/O total hysterectomy History of arthroscopy RT/LEFT KNEE History of colonoscopy History of tonsillectomy [place] teeth removed Family History Aunt Family history of diabetes mellitus Mother Family hx of colon cancer Social History Preferred Language: Ukrainian Communication Ability: Effective 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 Beliefs That Will Affect Care: None marital status: Current Living Situation: Spouse Other Information That Helps Us Care for You: No Feels Safe at Home: Yes Safety Concerns: Feels Safe At This Time Smoking Status: Never smoker Do You Dip or Chew Tobacco: No ; Second Hand Exposure: Yes ; Tobacco Cessation Education Requested by Patient: No Hx Alcohol Use: No Hx Substance Use: No Review of Systems Review of Systems: All systems reviewed & are unremarkable except as noted in HPI & below Physical Exam Constitutional: WD/WN, vitals as above Eyes: normal pupil size ENMT: external ear and nose normal, oropharynx normal Neck: trachea midline, no thyromegaly Respiratory: normal respiratory effort, lungs clear to auscultation Auscultation: no crackles and no wheezes Cardiovascular: RRR, no murmur, no edema Gastrointestinal (Abdomen): normal bowel sounds, soft, nontender, no hepatosplenomegaly Musculoskeletal: no cyanosis or clubbing, extremities motor strength 5/5 (NV intact distal to operation site) Neurologic: moves all extremities (did not exam right leg due to recent surgery, but ankle/toe movements azael) and awake; no focal motor deficits Psychiatric: A+Ox3, euthymic affect Results & Data Vital Signs (Past 12 Hours) Vital Signs Temp Pulse Resp BP Pulse Ox 08/31/19 15:51 99.7 F H 88 16 128/76 99 08/31/19 13:15 98.6 F 87 18 123/70 99 PG Care Time/CCT Total # of Minutes Spent Total Time Spent with Patient: Total time spent is greater than 50% in coordination of care (as documented) at patient's floor/unit and/or counseling patient: (1) Asthma Asthma severity: unspecified severity Asthma persistence: unspecified Asthma complication type: uncomplicated Qualified Code(s): J45.909 - Unspecified asthma, uncomplicated
[2019-09-01] MEDS: OXYCODONE HCL IR 5 MG TAB (IMMEDIATE RELEASE) PO PRN ×3 (03:41→12:04)
[2019-09-01] MEDS: FLUTICASONE/SALMETEROL (ADVAIR) 500/50 INH 14 PUFF INH SCH (08:05)
[2019-09-01] MEDS: ASPIRIN 81 MG ECTAB PO SCH (08:06)
[2019-09-01] MEDS: CALCIUM 600MG + VIT D 400 IU TAB PO SCH (08:06)
[2019-09-01] MEDS: DOCUSATE SODIUM 100 MG CAP PO SCH (08:07)
[2019-09-01] MEDS: CALCIUM POLYCARBOPHIL 625MG TAB PO SCH (08:07)
[2019-09-01] MEDS: prednisoLONE acetate 1% OP SUSP 5 ML BTL OP SCH (08:07)
[2019-09-01] MEDS: MULTIVITAMIN TAB PO SCH (08:07)
[2019-09-01] MEDS: FERROUS GLUCONATE 324 MG TAB PO SCH (08:07)
[2019-09-01] MEDS: ASCORBIC ACID 500 MG TAB PO SCH (08:07)
--- NOTE | 2019-09-01 09:47 | Orthopedic Progress Note ---
Date of Service September 01, 2019 Assessment & Plan (1) Knee osteoarthritis: POD # 2, s/p Right TKA, doing as well as expected. Continue regular diet. Continue PT/OT; WBAT with walker, Ok to D/C immobilizer today. Silverlon in place. Continue pain control. DVT Prophylaxis: TEDs on operative leg for minimum 2 weeks, foot pumps while in hospital, ASA 81 mg BID for 6 weeks. Plan for discharge today with home health. (2) Acute blood loss anemia: Will monitor. Asymptomatic. Subjective Patient doing well today, participating in PT this morning. She has her Silverlon dressing on her right knee, applied by nursing at 3:30 a.m. today. No complaints of chest pain, shortness of breath. Hasn't had a bowel movement, but states that she's "close". Tolerating a regular diet. No lightheadedness or dizziness. Physical Exam Physical Exam: Exam of right knee: silverlon in placed, distal pulses and sensation normal. Strength 5/5 with ankle dorsiflexion and plantarflexion. No calf tenderness, calf supple. Unable to SLR independently. Results & Data Vital Signs (Past 12 Hours) Vital Signs Temp Pulse Resp BP Pulse Ox 09/01/19 07:29 37.0 C 80 17 157/75 H 96 08/31/19 23:12 37.4 C 99 H 16 113/75 94
--- NOTE | 2019-09-05 08:55 | Discharge Summary ---
Date of Service September 01, 2019 Principal Diagnosis Right Knee Osteoarthritis S/P Right Total Knee Replacement 08-30-19 Discharge Data Allergies Allergy/AdvReac Type Severity Reaction Status Date / Time Tetanus Vaccines and Toxoid Allergy Severe Anaphylaxis Verified 08/30/19 05:18 Penicillins Allergy Intermediate breathing Verified 08/30/19 05:18 issues Consultations 08/30/19 10:05 Consult Case Management - Discharge Planning Routine Procedures Performed Operation Date: 08/30/19 07:00 Actual Procedures p Right Total Knee Arthroplasty(Right) - Ralph Siu MD Ordered Studies 08/30/19 05:00 US - OR guided needle placemen Routine 08/30/19 06:48 US - OR guided needle placemen Routine Hospital Course (1) Knee osteoarthritis: 69 yr old female underwent R TKR on 08-30-19 and admitted to hospital. No complication during procedure. Developed post-op anemia which was monitored and pt remained asymptomatic. Pain initially required IV pain meds and by POD 2 needing only PO pain meds. Worked with physical therapy throughout her stay. Required use of knee immobilizer while ambulating for 48hrs post-op. On POD 2 was able to ambulate without brace and do a few steps. On POD 2 patient had not yet had a bowel movement but voiding without issue. She was able to tolerate regular diet throughout her stay. On POD 2 her dressings were changed to silverlon, a waterproof dressing, to remain on for 2wks. During her hospital stay DVT prophylaxis consisted of TEDs, foot pumps, and ASA 81mg BID. She was deemed stable to DC to home with home health PT and her . Instructions on DC including dressings to remain on, TEDS for 2wks until f/u, ASA 81mg BID for 6wks, HHPT with use of walker for ambulation. Medications for pain include Rx for Oxycodone for severe pain, otherwise encourage OTC tylenol. Ice wrap provided. Patient also Rx iron 324mg BID for 2 wks and Vit C 500mg BID for 2wks. She is scheduled to follow-up in office in 2wks post-op appointment. She was advised to call the office or go to the ER for any concerns. (2) Acute blood loss anemia: Will monitor. Asymptomatic. Total Time Total Time Spent Total Time Spent (In Minutes): 20min Discharge Plan Discharge Items Patient Disposition: Home - Home Health Services Reason For Visit: Bilateral Primary Osteoarthritis of Knee Discharge Diagnosis: Bilateral Primary Osteoarthritis of Knee; S/P Right Total Knee Replacement Activity: Per Instructions section Lifting Comment: no heavy lifting especially while using walker or cane Bathing: Keep incision dry Bathing Comment: silverlon dressing is waterproof. ok to shower. do not submerge Exercise Comment: per physical therapy protocol Driving/Machine Use: no driving until cleared by surgeon Weightbearing: Right weightbearing Weightbearing Comment: as tolerated with walker or cane Non-emergency contact: Surgeon Call non-emergency contact if: your temperature is above 101.5, your wound has increased redness and your wound has increased drainage Follow-up/Referrals: Ralph Siu MD [Physician] - 09/15/19 10:15 am Ricki Simons DO [Primary Care Provider] - Diet: Regular Addtl Attending Provider Instructions: Post-operative Instructions Dear Patient and Family/Friends, Before you are discharged from the hospital, it is important to know what to expect when you get home after surgery. To that end, we have created this sheet of discharge instructions which covers many commonly asked questions. Make sure you go through this sheet in its entirety with your nurse before you are discharged. Please note that we will go over the specifics of your surgery and recovery when you return for your first post-operative visit. Sincerely, Dr. Siu Pain Expect to be in a fair amount of pain after surgery. Remember, our goal is not to eliminate your pain, but to make it tolerable. It is a good idea to stay ahead of your pain by taking the medications you were prescribed once you get home. Typically, the pain starts improving 3-7 days after surgery. You should start weaning off the narcotic pain medication (oxycodone, hydrocodone, hydromorphone, morphine) as soon as your pain improves. Please call our office if your pain is not adequately controlled. Ice Ice your operative site at least 5 times a day for 15-30 minutes at a time. Make sure you have a thin cloth between the ice or cooling unit and your skin to prevent conn bite. This is especially important if you received a nerve block. Continue icing your operative site for the first 5-7 days after surgery, then as needed. Diet/Nausea/Vomiting Start by drinking clear liquids and eating crackers. If you can tolerate this, then you may resume your normal diet. If you feel nauseated or vomit, take Zofran/ondansetron (if prescribed). Please call our office if you have intractable nausea or vomiting, or, if after hours, you may go to the Emergency Room for help. Constipation Constipation is a common side effect of narcotic pain medication. If you have not had a bowel movement within 2 days after surgery, we recommend purchasing an over the counter laxative such as Milk of Magnesia, Dulcolax, or Miralax from a local pharmacy, and taking it as instructed. Call our clinic if any questions. Nerve block The anesthesia team sometimes places a nerve block to help with post-operative pain control. This results in significant numbness and inability to move the extremity. The nerve block usually wears off in 8-12 hours, but sometimes can last up to 24 hours. Please call our office if you are still unable to move your extremity after 24 hours, unless you received a pain pump to take home. Nerve blocks typically wear off quickly, so start taking pain medication as soon as you start feeling soreness near your surgical site. Physical therapy You will be given a prescription for physical therapy or occupational therapy at your first post-operative appointment. Typically, patients start therapy within 1 week of surgery Wound care and showering We will inspect your wound at your first post-operative visit, and may do a dressing change at that time. Most patients will be in a water-proof dressing that is removed 14 days after surgery. It is normal to see some dried blood on the dressing. Do not remove your dressing, paper strips or sutures yourself unless you are given permission. Showering is allowed the day after surgery. Do not scrub or remove any dressings. The wound should not be submerged underwater (i.e. in a bathtub or pool) until 4 weeks after surgery VITALIY stockings If you were given white stockings, these are to be worn at all times except to shower (on both legs) for the first 2 weeks after surgery. Driving You may not drive while taking narcotic pain medication or while in a cast, splint, sling or brace. You, the patient, need to make the final determination about when you are safe to drive, however, the earliest you may consider driving after surgery is below: Hand/Wrist/Elbow Surgery: 3 days Shoulder Surgery: 2 weeks Hip,/Knee/Ankle Surgery: 4 weeks Fracture repair: 6 weeks Return to Work Your return to work depends on what surgery was done and what type of work you do. Please bring any paperwork your employer needs completed to your first post-operative visit. Also, bring a description of your job duties, as this helps us to understand what risks you may face at work. Travel Avoid long distance travel (greater than 1 hour) in airplanes and cars for the first 6 weeks after surgery. If you must travel, you need to have a Doppler ultrasound done before you travel to rule out a blood clot in your legs. Follow-up You should have a follow-up appointment already scheduled 1-2 days after surgery. If not, please contact our office to make this appointment before you leave the hospital. When to call the office It is normal to have swelling and bruising in the limb that was operated on. This will improve with time. It is also normal to have fevers for the first 2 days after surgery. Reasons you should call your doctor include: Uncontrolled pain; Nausea, vomiting, or constipation that does not improve with medication; Fevers over 101.5, chills, sweats; Drainage or bleeding from the wound; Foul odor; Spreading areas of redness; Any other concerns Medications: 1. oxycodone 5mg 1-2 tablets every 4- 6 hours as needed for pain. 2. Tylenol 500 mg 1 -2 tablets three times a day as needed for pain. 3. vitamin c 500mg 1 tablet twice daily x 2 weeks 4. Iron supplement 324 mg twice daily x 2 weeks. This may contribute to constipation along with pain medications. May need a stool softener or over the counter laxative or call our office if issues with constipation. 5. Aspirin 81 mg twice daily x 6 weeks to prevent blood clots. Pending Studies at Discharge: Yes Studies:: pathology report from surgery Stand-Alone Forms: [facility], Opioid Pain Management Medications and DC Order Prescriptions: New acetaminophen [Tylenol Extra Strength] 500 mg Tablet 500 - 1,000 mg PO Q8H PRN (Reason: pain) Qty: 60 RF: 0 ferrous gluconate 324 mg (38 mg iron) Tablet 324 mg PO BIDM 14 Days Qty: 28 RF: 0 aspirin [Ecotrin Low Strength] 81 mg Tablet,Delayed Release (Dr/Ec) 81 mg PO BID 42 Days Qty: 84 RF: 0 ascorbic acid (vitamin C) [Vitamin C] 500 mg Tablet 500 mg PO BIDM 14 Days Qty: 28 RF: 0 docusate sodium 100 mg Capsule 100 mg PO BID Qty: 30 RF: 0 oxycodone 5 mg tablet 5 - 10 mg PO Q6H PRN (Reason: pain) Qty: 30 RF: 0 Continued rizatriptan [Maxalt] 10 mg Tablet 10 mg PO UD PRN (Reason: Headache) RF: 0 prednisolone acetate [Pred Forte] 1 % Drops,Suspension 1 drp OPHTHALMIC (EYE) DAILY RF: 0 fluticasone propion-salmeterol [Advair Diskus] 500-50 mcg/dose Blister With Device 1 inh INHALATION BID PRN (Reason: SHORT OF BREATH) RF: 0 calcium polycarbophil [Fiber-Lax] 625 mg Tablet 625 mg PO QAM RF: 0 albuterol sulfate [Proventil HFA] 90 mcg/actuation Hfa Aerosol Inhaler 2 puff INHALATION QID PRN (Reason: SHORT OF BREATH) RF: 0 Calcium 600 + D(3) 600 mg calcium- 200 unit Capsule 1 cap PO BID RF: 0 Discontinued meloxicam 7.5 mg Tablet 7.5 mg PO QAM RF: 0 Discharge Orders: Discharge Order (Routine); Ordered 09/01/19 Ordered By: Hannah Costello/Other Patient Handouts: DVT Prevent Admission Data Admit Date/Time: 08/30/19 10:05 Attending Provider: Ralph Siu Admit Provider: Ralph Siu Primary Care Provider: Ricki Simons Other Providers: Chris Ruiz Other Interventions: Discharge Summary Assessment (RN) Last Done: 09/01/19 10:15 DC Date/Time DO NOT enter until pt leaves facility: 09/01/19 12:54
== END 2019-09-01 12:54 | disposition home health service (06) | DRG 470 ==
LOC: ASU 04:57 → 3E 10:05

== ENCOUNTER 2022-06-19 06:09 | Observation (INO) ==
--- NOTE | 2022-05-29 13:54 | PAT Medication Instructions ---
Medication Instructions Date of Service May 29, 2022 Home Medications albuterol sulfate 90 mcg/actuation aerosol inhaler (Proventil HFA) 2 puff inhalation QID PRN calcium carbonate 600 mg-vitamin D3 5 mcg (200 unit) capsule (Calcium 600 + D(3)) 1 cap PO QAM calcium polycarbophil 625 mg tablet (Fiber-Lax) 625 mg PO QAM fluticasone 500 mcg-salmeterol 50 mcg/dose blistr powdr for inhalation (Advair Diskus) 1 inh inhalation BID PRN prednisolone acetate 1 % eye drops,suspension (Pred Forte) 1 drp ophthalmic (eye) QAM rizatriptan 10 mg tablet (Maxalt) 10 mg PO UD PRN DO NOT take the morning of surgery calcium carbonate 600 mg-vitamin D3 5 mcg (200 unit) capsule (Calcium 600 + D(3)) 1 cap PO QAM calcium polycarbophil 625 mg tablet (Fiber-Lax) 625 mg PO QAM Take morning of surgery With a small sip of water, OTHERWISE NOTHING TO EAT OR DRINK AFTER MIDNIGHT: albuterol sulfate 90 mcg/actuation aerosol inhaler (Proventil HFA) 2 puff inhalation QID PRN(use if needed; please bring with you to hospital day of surgery if possible) fluticasone 500 mcg-salmeterol 50 mcg/dose blistr powdr for inhalation (Advair Diskus) 1 inh inhalation BID PRN(if needed) prednisolone acetate 1 % eye drops,suspension (Pred Forte) 1 drp ophthalmic (eye) QAM rizatriptan 10 mg tablet (Maxalt) 10 mg PO UD PRN(if needed) Take evening before surgery albuterol sulfate 90 mcg/actuation aerosol inhaler (Proventil HFA) 2 puff inhalation QID PRN(if needed) fluticasone 500 mcg-salmeterol 50 mcg/dose blistr powdr for inhalation (Advair Diskus) 1 inh inhalation BID PRN(if needed) rizatriptan 10 mg tablet (Maxalt) 10 mg PO UD PRN(if needed) Other Notes If you have any questions please call us at [phone] or [phone] or [phone] or [phone]
--- NOTE | 2022-06-04 09:37 | Anesthesiology Consultation ---
Date of Service June 04, 2022 Assessment & Plan (1) Encounter for pre-operative examination: - COVID screening: Per assessment on 06/04: No known COVID-19 positive contacts or current COVID-19 related symptoms. Travel screen negative. Patient vaccinated. Surgeon arranging preop COVID testing. Awaiting results. - S/P Right TKA (08/30/19): LMA#4 IGel + PNB at [facility]. No issues noted per post- op anesthesia progress note. Chart Review Chart Review: Acceptable Risk for Surgery and Patient seen in Pre Admission Testing Teaching & Discussion Pre-Anesthesia Teaching/Discussion Notes: Instructed NPO after midnight before surgery,except medications with 15 cc of water. Medication instructions provided according to the PAT guidelines. History Surgery Operation Date: 06/19/22 08:15 Proposed Procedures p Left Total Knee Arthroplasty - Mu Franklin MD Height/Weight Height: 5 ft 9 in Weight: 90.7 kg Allergies Allergy/AdvReac Type Severity Reaction Status Date / Time meloxicam Allergy Severe DRESS Verified 05/21/22 12:29 syndrome Medications Home Medications Medication Instructions Recorded Confirmed Last Taken albuterol sulfate 90 mcg/actuation 2 puff inhalation QID PRN SHORT OF 08/01/19 05/29/22 Unknown aerosol inhaler (Proventil HFA) BREATH calcium carbonate 600 mg-vitamin 1 cap PO QAM 08/01/19 05/29/22 05/21/22 05:00 D3 5 mcg (200 unit) capsule (Calcium 600 + D(3)) calcium polycarbophil 625 mg 625 mg PO QAM 08/01/19 05/29/22 05/21/22 05:00 tablet (Fiber-Lax) fluticasone 500 mcg-salmeterol 50 1 inh inhalation BID PRN SHORT OF 08/01/19 05/29/22 05/20/22 20:00 mcg/dose blistr powdr for BREATH inhalation (Advair Diskus) prednisolone acetate 1 % eye 1 drp ophthalmic (eye) QAM 08/01/19 05/29/22 05/21/22 05:00 drops,suspension (Pred Forte) rizatriptan 10 mg tablet (Maxalt) 10 mg PO UD PRN Headache 08/01/19 05/29/22 Unknown Past Medical History Medical History Asthma Stable Cervical cancer s/p hysterectomy (no chemo/XRT) Diverticulitis 5 years ago Glaucoma "pre-glaucoma" Headache Maxalt PRN Osteoarthritis Skin cancer, basal cell s/p Moh's procedure (nose) Spinal stenosis Exercise / Class Metabolic Activity III < 4 Walking/Shop/Light housework (one FS (no CP, mild SOB)) Past Family History Family History Aunt Family history of diabetes mellitus Mother Family hx of colon cancer Past Surgical History Surgical History Cornea transplant recipient R/L H/O total hysterectomy History of arthroscopy R/L knee History of bunionectomy Right History of colonoscopy History of open reduction and internal fixation (ORIF) procedure Fx wrist ([place]) History of tonsillectomy Hx of total knee replacement Right TKA (08/30/19): LMA#4 IGel + PNB at [facility]. No issues noted per post-op anesthesia progress note. S/P epidural steroid injection [place] teeth removed Past Anesthesia History No Hx of Anesthesia Complications and No Family Hx of Anesthesia Complications History of PONV No Hx of PONV and No Hx of Motion Sickness Social History Smoking Status: Never smoker Do You Dip or Chew Tobacco: No Hx Alcohol Use: No Hx Substance Use: No ("not since college") substance use type: does not use Review of Systems Patient denies chest pain, shortness of breath, dyspnea on exertion, fever, chills, cough, wheezing, palpitations. Physical Exam Vital Signs VITALS BP 113/77 P 65 TEMP 98.3 SP02 96%RA RESP 16 PHYSICAL Full cervical extension range of motion. Full TMJ range of motion. TMD 3 finger breaths Mallampati Score 3 Dentition: intact, + several crowns Lungs: clear throughout to auscultation Cardiac: regular rate and rhythm, no murmurs noted Spine: normal Carotid arteries: negative bruit Extremities: no edema Lab Results Anesthesia Preop Results Results Anesthesia Widget: WBC 7.03 K/ul (4.8-10.8) 06/04/22 Hgb 13.7 g/dl (12.0-16.0) 06/04/22 Hct 41.6 % (34.1-44.9) 06/04/22 Plt 219 K/uL (130-400) 06/04/22 Na 140 mmol/L (136-145) 06/04/22 K 4.2 mmol/L (3.5-5.1) 06/04/22 Cl 106 mmol/L (98-107) 06/04/22 CO2 30 mmol/L (21-32) 06/04/22 BUN 15 mg/dl (6-23) 06/04/22 Creat 0.75 mg/dl (0.6-1.2) 06/04/22 Glucose Level 93 mg/dl (70-99(Fasting)) 06/04/22 PT 10.7 Seconds (9.0-12.0) 06/04/22 PTT 30.1 Seconds (21.0-31.0) 06/04/22 INR 1.0 (0.9-1.1) 06/04/22 HA1c 5.9 % (4.5-5.6) H 06/04/22 Urine Color Yellow 06/04/22 Urine Appearance Clear (Clear) 06/04/22 Urine pH 7.0 (4.5-7.5) 06/04/22 Urine Specific [place] 1.008 (1.000-1.030) 06/04/22 Urine Protein Negative (Negative) 06/04/22 Urine Glucose (UA) Negative (Negative) 06/04/22 Urine Ketones Negative (Negative) 06/04/22 Urine Blood Negative (Negative) 06/04/22 Urine Nitrite Negative (Negative) 06/04/22 Urine Bilirubin Negative (Negative) 06/04/22 Urine Urobilinogen Negative (Negative) 06/04/22 Urine Leukocyte Esterase Trace (Negative) H 06/04/22 Urine WBC (Auto) 1-5 /hpf (0-5) 06/04/22 Urine RBC (Auto) 0-4 /hpf (0-4) 06/04/22 Urine Hyaline Casts (Auto) 0 /lpf (0-5) 06/04/22 Urine Epithelial Cells (Auto) 5-10 /lpf (0-5) H 06/04/22 Urine Bacteria (Auto) Negative (Negative) 06/04/22 Blood Type O Positive 06/04/22 Antibody Screen NEGATIVE 06/04/22 Testing Electrocardiogram Date: 06/04/22 NSR at 62bpm.
--- NOTE | 2022-06-05 16:28 | History & Physical Report ---
Date of Service June 05, 2022 Assessment & Plan (1) Osteoarthritis of left knee: Plan: PRE-OP Diagnosis: Left knee osteoarthritis Planned Procedure: Left total knee arthroplasty Plan: Patient is scheduled to undergo this procedure at the [facility] with a 23-hour observation admission on , June 19, [address] Franklin. Risks and complications of the procedure such as: Infection, bleeding, pain, scarring, nerve blood vessel damage, weakness, wound problems, stiffness, incomplete relief of symptoms, hardware failure, hardware loosening, wear, fracture, tendon or ligament injury, blood clots, embolism, intact, stroke and were explained to the patient after visit on May [address] Franklin and informed consent to perform the procedure Will be obtained on the day of surgery. Patient also understands risks of proceeding with surgical intervention during the COVID-19 pandemic. Currently she is asymptomatic and understands that she will need to be tested prior to surgery. Patient states she is scheduled to meet with anesthesia later this morning. While there she will obtain a CBC with differential, complete metabolic panel, PT/INR, blood type and screen, urinalysis, urine culture and sensitivity, hemoglobin A1c, EKG and a nasal culture for MRSA. We have already obtained preoperative medical clearance from the patient's primary care provider Dr. Simons. During today's visit we reviewed the total knee packet. I advised the patient that she will need a walker, raised toilet seat and shower chair. We discussed discharge planning from the hospital. I provided the patient with paperwork to obtain a handicap placard for her vehicle. We discussed lectures offered by [facility] in regards to joint replacement surgery via Zoom. We discussed antibiotic use for dental procedures following joint replacement surgery. I advised the patient she will be prescribed narcotic pain medication and anti-inflammatory upon discharge from the hospital. She will also be on an 81 mg aspirin twice daily for blood clot prevention and may supplement for additional pain control with extra Tylenol. Patient is scheduled for her 2-week postoperative follow-up with myself on July 02 at 10 AM. Patient verbalized understanding of all information provided during today's visit. She thinks for the care that she received. She has questions or concerns should arise prior to her surgery, she will contact clinic. This chart was completed utilizing [employer] voice recognition software. Grammatical errors, random word insertions, pronoun errors, and in complete sentences are an occasional consequence of the system. Any questions or concerns about the content, text, or information contained within the body of this dictation should be addressed directly to the physician for clarification. History of Present Illness Chief Complaint: Chief Complaint: Left knee pain Primary Care Provider: Ricki Simons DO History of Present Illness (including history relevant to procedure): This 72-year-old female presents to clinic today for preoperative history and physical. Patient states that she is having significant left knee pain localized over the medial aspect for about the past 3 years. She states that over the past several months the pain has increased considerably. She denies any injury to the knee. She states that she had a right knee replacement performed by Dr. Salbador trevino in 2019 and feels that the left knee feels similar to the pain she experienced in her right knee before the replacement surgery. Patient states that she lives in [place] during the winter months but during summer has a home in [place]. She states she has done some therapy on the knee received corticosteroid injections and use [id number] anti- inflammatory agents without any relief for pain. Patient would like to proceed with surgical intervention at this time. Review Of Systems: A 12 point review of systems is performed and is unremarkable except for those things stated in the HPI and past medical history. Past Medical History: Problems: Left lumbar radiculopathy History of bunionectomy Arthritis of first metatarsophalangeal (MTP) joint of right foot Left knee pain Right knee pain Allergic rhinitis IT band syndrome S/P total knee replacement Infected cyst of skin Changing skin lesion Milia OA (osteoarthritis) of knee Toe fracture Epicondylitis Knee pain Osteopenia SHOULDER PAIN Diverticulosis Vision problems Cervical ca ASTHMA Procedure History Procedure Procedure Date Comments FNA Breast hysterectomy cornea replacements - X2: 2007 & 2008 Mammogram - wnl/repeat 1 yr MRI of lumbar spine 04/18/2022 - Impression: 1. No acute fracture. 2. Grade 1 anterolisthesis L4 on L5 secondary to sever facet arthrosis. Additionally, there is moderate central canal stenosis at this interspace with mild right and mild to moderate left neural foraminal narrowing. 3. Additional discogenic degeneration with spondylitic spurring and facet arthrosis as above. Plain X-ray of lumbar spine 02/12/2022 - Impression: 1. No acute fracture of the lumbar spine. 2. Levoscoliosis with demineralized appearance of the bones. 3. Grade 1 anterolisthesis of L4 on L5 is likely secondary to chronic facet arthrosis. Colonoscopy 10/23/2021 - COLO to cecum, left colon diverticulosis, 4 mm distal rectal polyp CF DEXA - dual energy X-ray absorptiometry 08/13/2021 - AP Spine L1-L4 -1.9DualFemur Total Mean -1.8 Mammogram 06/24/2021 Shave biopsy of skin 05/29/2021 Mammogram 06/21/2020 - ACR BI RADS CAT 2 BENIGN Shave biopsy and cauterization of skin 05/08/2020 - A. Right medial breastB. Presternal areaC. right chestD. Right clavicular area RIGHT TOTAL KNEE ARTHROPLASTY 08/30/2019 - Post Op Diagnosis: Osteoarthritis of knee, right knee Bilateral Digital Screening Mammogram Tomosynthesis with CAD 06/16/2019 - Impression: ACR BI RADS CATEGORY 1: NegativeThere is no mammographic evidence of malignancy. A 1 year screening mammogram is recommended. Audiometry 05/23/2019 - A mild to moderate SNHL above 3 KHz in the left ear and a mild to moderate SNHL above 1.5 KHz in the right ear. Word recognition scores were excellent bilaterally. Shave biopsy and cauterization of skin 03/22/2019 H/O: surgery- minescus repair R knee 12/2018 DXA BONE DENSITY STUDY 08/17/2018 - With a Z score of 0.1 this patient's BMD is considered within normal limits relative to their age. Even so, they may be considered osteopenic or osteoporotic which is normal for this age. Mammogram 06/10/2018 - There is no mammographic evidence of malignancy. A 1yr screening mammogram is recommended. Audiogram 05/17/2018 - findings:audiometry a mild to moderate SNHL above 3KHz in the left ear and a mild to moderate SNHL above 1.5 KHz in the right ear. word recognition scores were excellent bilaterally. She has significant high frequency SNHL with limited social difficulties. She would likely benefit from amplification, but does not find it necessary at this time MRI of foot 08/17/2017 - 1. there is marrow edema identified in the base and proximal shaft of the fifth metatarsal. this is deep to the cutaneous marker and likely represents a stress reaction/non-distracted stress fracture.2. finding suggest mild plantar faciitis involving the medial bundle of the plantar facia3. there is tendinopathy with mild partical thickness tearing of the peroneus longus tendon4. Arthritic change in the midfoot as above, greatest at the second and third tarsometatarsal joints Colonoscopy 06/05/2016 - serrated follow up; five year follow up recommended Mammogram 05/28/2015 - negative, one year follow up recommended Arthroscopy of knee 2011 - Left Colonoscopy 11/16/2011 Allergies and Sensitivities: meloxicam(Possible face swelling, rash, itching) Horses(asthma) Animal dander(asthma) Social history: Completely unremarkable Family history: Lung cancer and heart disease Current Home Meds: (Last Updated 06/04 09:03) acetaminophen PRN albuterol (ProAir HFA 90 mcg/inh inhalation aerosol) 2 puff inhaled qid PRN: as needed for wheezing calcium and vitamin D combination (Calcium 600+D) 1 tab PO bid fluticasone-salmeterol (fluticasone-salmeterol Diskus 500 mcg-50 mcg) USE 1 INHALATION TWICE A DAY prednisoLONE ophthalmic (Pred Forte) 1 drop both eyes Daily rizatriptan (Maxalt 10 mg oral tablet) 10 mg PO ONCE PRN: as needed for migraine headache rosuvastatin (rosuvastatin 10 mg oral tablet) 10 mg PO qhs unknown medication (fiber pill) Initial Wt: 06/04 90.3 kg 199 lb Allergies Allergy/AdvReac Type Severity Reaction Status Date / Time meloxicam Allergy Severe DRESS Verified 05/21/22 12:29 syndrome Home Medications Medication Instructions Recorded Confirmed Type albuterol sulfate 90 mcg/actuation 2 puff inhalation QID PRN SHORT OF 08/01/19 05/29/22 History aerosol inhaler (Proventil HFA) BREATH calcium carbonate 600 mg-vitamin 1 cap PO QAM 08/01/19 05/29/22 History D3 5 mcg (200 unit) capsule (Calcium 600 + D(3)) calcium polycarbophil 625 mg 625 mg PO QAM 08/01/19 05/29/22 History tablet (Fiber-Lax) fluticasone 500 mcg-salmeterol 50 1 inh inhalation BID PRN SHORT OF 08/01/19 05/29/22 History mcg/dose blistr powdr for BREATH inhalation (Advair Diskus) prednisolone acetate 1 % eye 1 drp ophthalmic (eye) QAM 08/01/19 05/29/22 History drops,suspension (Pred Forte) rizatriptan 10 mg tablet (Maxalt) 10 mg PO UD PRN Headache 08/01/19 05/29/22 History Past Med/Surg History Medical History Asthma Stable Cervical cancer s/p hysterectomy (no chemo/XRT) Diverticulitis 5 years ago Glaucoma "pre-glaucoma" Headache Maxalt PRN Osteoarthritis Skin cancer, basal cell s/p Moh's procedure (nose) Spinal stenosis Surgical History Cornea transplant recipient R/L H/O total hysterectomy History of arthroscopy R/L knee History of bunionectomy Right History of colonoscopy History of open reduction and internal fixation (ORIF) procedure Fx wrist ([place]) History of tonsillectomy Hx of total knee replacement Right TKA (08/30/19): LMA#4 IGel + PNB at [facility]. No issues noted per post-op anesthesia progress note. S/P epidural steroid injection [place] teeth removed Family History Aunt Family history of diabetes mellitus Mother Family hx of colon cancer Social History Smoking Status: Never smoker Second Hand Exposure: No; Hx Alcohol Use: No Hx Substance Use: No ("not since college") Preferred Language: Kenyan Communication Ability: Effective Elderly Sitter Required: No Beliefs That Will Affect Care: None marital status: Current Living Situation: Spouse Feels Safe at Home: Yes Assistive Devices: Brace/Splint/Immobilizer, Hearing Aid - Bilateral and Walker Review of Systems All systems reviewed & are unremarkable except as noted in Subjective Physical Exam Physical Exam: Physical Exam: (relevant to the procedure, including heart and lung evaluation) General: Oriented x3 with proper grooming and hygiene Eyes: Pupils are equal react to light with accommodation. Extraocular movements are intact Throat: Deferred due to COVID-19 precautions Cardiac: Regular rate and rhythm with no murmurs or gallops appreciated Lungs: Clear to auscultation throughout with no wheezing, rales or rhonchi Abdomen: Mildly obese, nondistended, nontender with NABS Extremities: Left knee; range of motion is from 0 degrees of extension to 130 degrees of flexion. There is audible crepitation with passive range of motion. Patient experiences medial joint line tenderness when knee is palpated in flexed position. Her patella is not mobile due to arthritic change within the patellofemoral joint. She has no varus or valgus laxity with stressing. AP drawer sign and [place] test are negative. Patient is neurovascular intact in left lower extremity. Neuro: Cranial nerves II through XII are intact no motor or sensory deficit Skin: Normal appearance with no open skin areas or discharge Results & Data ([facility]) Diagnostic Findings Studies of Lab Results (relevant to the procedure): X-rays done include 3 views of the left knee. These demonstrate tricompartmental osteophyte formation and medial joint space narrowing. Code Status & VTE Plan VTE Prophylaxis Plan VTE Prophylaxis will be ordered: Yes
[~2022-06-19 06:09] MED LIST changes: +ACETAMINOPHEN 500 MG TAB PO SCH; -ADVIN25050 INH; +ALLERGY Noted to ORDERED Medication SCH; -CALC-5 PO; +FAMOTIDINE 20 MG TAB PO SCH; -FIBER; +LR 500ML BOLUS, THEN 15ML/HR IV SCH; +LR 60ML/HR IV SCH; -MULT-506 PO; -NAPR550T61 PO; +ROPIVACAINE 0.5% HCL/PF 150 MG, BUPIVACAINE 0.75% MPF 20 ML, EPINEPHrine 0.15 MG, Ketor... INFIL SCH; +Scopolamine 1 MG TDSY TD SCH; +TRANEXAMIC ACID 1,000 MG **IV Intra-op IV SCH; +TRANEXAMIC ACID 1,000 MG **IV Pre-op IV SCH; +ceFAZolin 2000MG 2,000 MG/15 ML SYR IV SCH; +dexAMETHasone 4 MG TAB PO SCH; +traMADol HCL 50 MG TABLET PO SCH
[2022-06-19] MEDS ORDERED: BUPIVACAINE 0.5 % 5 MG/1 ML PF 10ML VIAL ONE (06:32)
[2022-06-19] MEDS ORDERED: EPINEPHrine INJ 1 MG/ML AMP ONE (06:32)
[2022-06-19] MEDS ORDERED: ROPIVACAINE 0.5% 5 MG/ML 30 ML VIAL ONE (06:32)
--- NOTE | 2022-06-19 07:50 | History & Physical Bridge Note ---
Date of Service June 19, 2022 History & Physical Bridge Note I have examined the patient, reviewed the History & Physical and in the interval since the performance of the History & Physical I have noted the following changes of clinical significance: no changes noted
[2022-06-19] MEDS ORDERED: ORTHO JOINT ANESTHETIC ONE (07:58)
[2022-06-19] MEDS ORDERED: fentaNYL citrate 100 MCG/2 ML VIAL ONE (08:00)
[2022-06-19] MEDS ORDERED: MIDAZOLAM HCL 1 MG/ML 2ML VIAL ONE (08:00)
[2022-06-19] MEDS ORDERED: LIDOCAINE 2% MPF LOCAL 5 ML VIAL INFIL ONE (08:40)
[2022-06-19] MEDS ORDERED: PROPOFOL IV EMULSION 10 MG/ML 20 ML VIAL IV ONE (08:40)
[2022-06-19] MEDS ORDERED: fentaNYL citrate 100 MCG/2 ML VIAL IV PRN (08:47)
[2022-06-19] MEDS ORDERED: ONDANSETRON INJ 2 MG/ML 2 ML VIAL IV PRN ×2 (08:47→10:16)
[2022-06-19] MEDS ORDERED: ATROPINE SULFATE 0.1 MG/ML 10ML SYR IV PRN (08:47)
[2022-06-19] MEDS ORDERED: LABETALOL HCL IV 5 MG/ML 20ML IV PRN (08:47)
[2022-06-19] MEDS ORDERED: PHENYLEPHRINE 100MCG/ML 5ML SYR IV PRN (08:47)
[2022-06-19] MEDS ORDERED: HYDROmorphone INJ 1 MG/ML SYRINGE IV PRN (08:47)
[2022-06-19] MEDS ORDERED: ePHEDrine sulfate 50 MG/ML AMP IV PRN (08:47)
[2022-06-19] MEDS ORDERED: ePHEDrine sulfate 50 MG/ML AMP ONE (08:48)
--- NOTE | 2022-06-19 10:14 | Operative Report ---
Post Operative Report Pre & Post Diagnosis Operation Date: 06/19/22 08:15 Pre-Op Diagnosis: Left Knee Osteoarthritis Post-Op Diagnosis: Left Knee Osteoarthritis I identified the patient and participated in the time-out.: Yes Procedure Operation Date: 06/19/22 08:15 Actual Procedures p Left Total Knee Arthroplasty, Cemented(Left) - Mu Franklin MD Surgeon Mu Franklin MD [employer] Manager HAWK Louise PA-C. No resident or fellow was available to assist. Estimated Blood Loss 100 Findings Consistent with Post-Op Diagnosis Specimens Left knee bone and soft tissue contents Anesthesia Type Spinal MAC Complications none Disposition Disposition: Recovery Room Indications 72-year-old female with left knee osteoarthritis refractory to conservative management. She is status post a right total knee arthroplasty in the past with a good result. She desires to have the same procedure performed on her left knee. I reviewed the risks and benefits of surgery, alternatives, and expected outcomes. After reviewing all these patient elected to proceed with surgery. All questions were answered. Informed consent was signed. Description of Procedure Patient was identified in the preoperative holding area where the surgical site, left knee, was marked. Patient was brought back to the operating room, placed on the operating room table, and IV sedation was administered. All bony pro minences were padded. Perioperative antibiotics and tranexamic acid were administered. Exam under anesthesia was performed. This showed the patient to have a 5 degree flexion contracture. She flexed up to 130 degrees. Stable to varus and valgus at 0 and 30 degrees. The surgical site was prepped and draped in the normal sterile fashion. Prior to incision a multidisciplinary timeout was called. All in the room were in agreement. We began by exsanguinating the limb with an Esmarch bandage. Tourniquet was inflated to 250 mmHg. A 14 cm long incision was made over the anterior aspect of the knee. I dissected through the subcutaneous tissues to the level of the fascia. Full-thickness flaps were raised above the fascia. A median parapatellar arthrotomy was made. Half the fat pad was excised. A medial release was performed with Bovie electrocautery on the proximal tibia. Synovitis in the knee and suprapatellar pouch was removed. The patella was then everted and held with 2 towel clips. The thickness of the patella was measured at 24 mm. Patellar resection was performed. Caliper showed the patella thickness now to be 14 mm. A size 38 mm trial was placed and had a great fit. The 3 drill holes were placed then the trial button was placed. The patellar thickness was now 24 mm which I was very happy with. The patellar trial was then removed, the patella was everted and the knee was flexed up. Osteophytes were removed from the femoral condyles and intercondylar notch. The ACL and PCL were excised. Intramedullary drill guide was drilled into the femur. Distal femoral cutting guide was placed set at 5 degrees of valgus to resect 10 mm off the distal femur. Distal femoral resection was made without difficulty. The tibia was then exposed. The lateral meniscus was sharply excised. The tibial cutting jig was positioned to resect 9 mm off the less involved compartment. The jig was then pinned in position and the tibial cut was made. We then brought the knee into full extension. Lamina spreaders were placed. The medial meniscus was excised. The extension block was then placed for 6 mm thickness poly. This gave us full extension and excellent stability to varus and valgus. Next the knee was flexed up and the femoral sizing guide was placed. The patient sized to a size 5 femur. The 3 degree external rotation jig was used to create 2 holes in the distal femur. The jig was removed and the holes were compared to Whitesides axis and the epicondylar axis. We were happy with the rotation, and therefore placed a size three 4-in-1 cutting jig and pinned this into position. Our 4 cuts were made. The cutting jig was removed. The flexion block was then placed with the knee held at 90 degrees. There was excellent stability to varus and valgus at 90 degrees with no gapping medially or laterally. Next the box cutting jig was placed on the distal femur. The box cut was made and the femoral trial was impacted into position. The tibia was sized to a 5 for a all polyethylene tibial component. The tibial tray was positioned in external rotation on the cut tibial surface and the knee was brought through a full range of motion. We then pinned the tibial tray into position and used the intramedullary drill followed by the keel punch. The trial polyethylene was then placed and the knee was brought through a full range of motion. I was very happy with the stability through a full range of motion, and the patellar tracking was excellent. Next the trial components were removed. I then injected the posterior capsule and periosteum with the periarticular injection cocktail. The bone cuts were then irrigated and dried while the cement was mixed on the back table. The femoral component was cemented on first. Excess cement was removed. A lap sponge was placed over the femoral component for protection, then the tibia was subluxated anteriorly. The all polyethylene tibial component was then cemented in place. Again excess cement was removed. The knee was brought into full extension and held there until the cement cured. The patella was cemented and clamped. Dilute Betadine solution was then allowed to irrigate the knee while the cement cured. The remaining injection cocktail was then placed in the subcutaneous tissues throughout the incision. Once the cement was fully cured, the tourniquet was let down and meticulous hemostasis was ensured. The wound was irrigated out with copious amounts normal saline. The knee was brought through a full range of motion and we were very happy with the patella tracking and the stability. We then began to close. Interrupted 0 Vicryl suture was used to repair the patellar retinaculum in [id number] fashion. The quadriceps and patellar tendons were run with #1 Ethibond. The deep dermal layer was closed with interrupted 2-0 Vicryl. Dermabond and Zipline was used for the skin. A compressive dressing was placed. Patient's sedation was lifted and was transferred to recovery room in stable condition. Summary of implants: Depuy Attune Posterior Stabilized Cemented Femur, size 5 Attune All-polyethylene tibial component, posterior stabilized 6 mm thickness, size 5 Attune patella medialized dome, size 38 2 batches of simplex high viscosity bone cement with gentamicin Postoperative course: Patient will be admitted to the floor for pain control and monitoring. Weightbearing as tolerated with a walker with no knee range of motion for 48 hours. Aspirin for DVT prophylaxis. I attest to the content of the Intraoperative Record and any orders documented therein. Any exceptions are noted below.
[2022-06-19] MEDS ORDERED: diphenhydrAMINE 50 MG/ML VIAL IV PRN (10:16)
[2022-06-19] MEDS ORDERED: oxyCODONE HCL IR 5 MG TAB (IMMEDIATE RELEASE) PO PRN (10:16)
[2022-06-19] MEDS ORDERED: bisacodyL 10 MG SUPP PR PRN (10:16)
[2022-06-19] MEDS ORDERED: ALUMINUM/MAGNESIUM SUSP 30 ML UDC PO PRN (10:16)
[2022-06-19] MEDS ORDERED: METOCLOPRAMIDE HCL INJ 5 MG/ML 2 ML VIAL IV PRN (10:16)
[2022-06-19] MEDS ORDERED: MAGNESIUM HYDROXIDE SUSP 30 ML UDC PO PRN (10:16)
[2022-06-19] MEDS ORDERED: NALOXONE HCL 0.4 MG/1 ML VIAL/CARP IV PRN (10:16)
--- NOTE | 2022-06-19 10:16 | Operative Report ---
Post Operative Report Pre & Post Diagnosis Operation Date: 06/19/22 08:15 Pre-Op Diagnosis: Left Knee Osteoarthritis Post-Op Diagnosis: Left Knee Osteoarthritis I identified the patient and participated in the time-out.: Yes Procedure Operation Date: 06/19/22 08:15 Actual Procedures p Left Total Knee Arthroplasty, Cemented(Left) - Mu Franklin MD Surgeon Mu Franklin MD Small Craft Operator HAWK Louise PA-C. No resident or fellow was available to assist. Estimated Blood Loss 100 Findings Consistent with Post-Op Diagnosis Specimens none Description of Procedure I was present during the entire case assisting with positioning, prepping, draping, wound retraction, wound closure, dressing and immobilizer application. No fellow present. Please see Dr. Franklin procedure note for specifics of the case. I attest to the content of the Intraoperative Record and any orders documented therein. Any exceptions are noted below.
[2022-06-19] MEDS ORDERED: RIZATRIPTAN BENZOATE 10 MG TAB PO PRN (10:21)
[2022-06-19] MEDS ORDERED: ALBUTEROL HFA 8 GM INHALER INH PRN (10:21)
[2022-06-19] MEDS ORDERED: SODIUM CHLORIDE 0.9% 1000ML 1,000 ML IV SCH (10:30)
--- NOTE | 2022-06-19 11:00 | Anesthesiology Progress Note ---
Date of Service June 19, 2022 Anesthesia Post Procedure Vital Signs Vital Signs: Temp Pulse Pulse Resp BP BP Pulse Ox 06/19/22 10:55 36.4 C L 60 12 115/69 98 06/19/22 10:45 62 12 117/69 95 06/19/22 10:35 56 L 12 118/69 95 06/19/22 10:25 63 18 114/70 99 06/19/22 10:15 36.2 C L 61 15 125/64 98 06/19/22 06:29 36.7 C 73 20 127/75 96 06/19/22 06:29 O2 Del Method 06/19/22 10:55 Room Air 06/19/22 10:45 Room Air 06/19/22 10:35 Room Air 06/19/22 10:25 Room Air 06/19/22 10:15 Room Air 06/19/22 06:29 Room Air 06/19/22 06:29 Room Air Transfer of Care Handoff Completed per policy Notes Mental Status: alert / awake / arousable Patient Amnestic to Procedure: Yes Nausea / Vomiting: adequately controlled Pain: adequately controlled Airway Patency, RR, SpO2: stable & adequate BP & HR: stable & adequate Hydration State: stable & adequate Neuraxial Anesthesia: was administered and sensory block is resolving Anesthetic Complications: no major complications apparent and Pt Satisfied with anesthetic care
--- NOTE | 2022-06-19 11:10 | XRay Report ---
TWO VIEWS LEFT KNEE CLINICAL HISTORY: Postoperative examination. FINDINGS: AP and crosstable lateral portable views of the left knee are obtained. A left knee arthrop lasty is in near anatomic alignment. There has been undersurface remodeling of the patella. No acute fracture is seen. There are expected postoperative changes around the knee including soft tissue jorge a, and subcutaneous gas. IMPRESSION: Expected postoperative changes status post left knee arthroplasty. No acute fracture is s een. ACT 112: Negative or not required by law. Electronically signed by: Delroy Deras M.D. 06/19/2022 11:08 AM
[2022-06-19] MEDS ORDERED: FLUTICASONE/VILANTEROL 200/25MCG 14 PUFFS/INHALER INH PRN (11:39)
[2022-06-19] MEDS: KETOROLAC TROMETHAMINE 15 MG/ML VIAL IV SCH ×2 (13:00→20:10)
[2022-06-19] MEDS: ACETAMINOPHEN 500 MG TAB PO SCH ×2 (13:00→21:33)
[2022-06-19] MEDS: ceFAZolin 2000MG 2,000 MG/15 ML SYR IV SCH (15:32)
[2022-06-19] MEDS: Scopolamine CHECK PATCH PLACEMENT SCH ×2 (15:33→23:22)
[2022-06-19] MEDS ORDERED: TRANEXAMIC ACID / 0.7% NACL 1,000 MG/100 ML BAG IV SCH (16:30)
[2022-06-19] MEDS: DOCUSATE SODIUM 100 MG CAP PO SCH (20:09)
[2022-06-19] MEDS ORDERED: SENNA 8.6 MG TAB PO SCH (21:00)
[2022-06-20] MEDS: ceFAZolin 2000MG 2,000 MG/15 ML SYR IV SCH (00:35)
[2022-06-20] MEDS: KETOROLAC TROMETHAMINE 15 MG/ML VIAL IV SCH ×2 (02:07→08:01)
[2022-06-20] MEDS: ACETAMINOPHEN 500 MG TAB PO SCH (06:00)
[2022-06-20 06:49] LABS: Hematocrit (blood only) 37.4 % (34.1-44.9); Hemoglobin 12.4 g/dl (12.0-16.0); Mean Corpuscular Hemoglobin 28.6 pg (25.0-34.0); Mean Corpuscular Hgb Conc 33.2 g/dL (32.0-36.0); Mean Corpuscular Volume 86.4 fL (80.0-100.0); Mean Platelet Volume 11.5 fL (9.4-12.3); Platelet Count 220 K/uL (130-400); RDW Coefficient of Variation 12.9 % (11.5-14.5); RDW Standard Deviation 40.6 fL (36.4-46.3); Red Blood Count 4.33 M/uL (3.93-5.22); White Blood Count 15.65 K/ul (4.8-10.8)
[2022-06-20 07:18] LABS: Calcium 8.7 mg/dl (8.5-10.1); Est GFR (African American) 83.4 ml/min
[2022-06-20] MEDS: Scopolamine CHECK PATCH PLACEMENT SCH (07:52)
[2022-06-20] MEDS ORDERED: dexAMETHasone 4 MG TAB PO SCH (08:00)
[2022-06-20] MEDS: DOCUSATE SODIUM 100 MG CAP PO SCH (08:00)
[2022-06-20] MEDS ORDERED: MULTIVITAMIN TAB PO SCH (09:00)
[2022-06-20] MEDS ORDERED: CALCIUM POLYCARBOPHIL 625MG TAB PO SCH (09:00)
[2022-06-20] MEDS ORDERED: prednisoLONE acetate 1% OP SUSP 5 ML BTL OP SCH (09:00)
[2022-06-20] MEDS ORDERED: ROSUVASTATIN CALCIUM 10 MG TAB PO SCH (09:00)
[2022-06-20] MEDS ORDERED: ASPIRIN 81 MG ECTAB PO SCH (09:00)
[2022-06-20] MEDS ORDERED: CALCIUM 600MG + VIT D 400 IU TAB PO SCH (09:00)
--- NOTE | 2022-06-20 10:03 | Orthopedic Progress Note ---
Date of Service June 20, 2022 Assessment & Plan (1) S/P total knee arthroplasty: Plan: PT/OT Weightbearing as tolerated with walker assist assist in immobilizer for the first 48 hours. DVT prophylaxis with VITALIY stockings and aspirin Ice with easy wrap Keep Silverlon dressing intact Pain control with p.o. medication Plan is for discharge home later today with in-home physical therapy for the first 2 weeks postoperatively Follow-up at [facility] orthopedics as previously scheduled With questions contact our clinic at [phone] Admission and Anticipated Discharge Date Admission Date: June 19, 2022 Subjective This 72-year-old female is seen this morning. She is day 1 status post left total knee arthroplasty. Patient states that she is doing very well. She is hoping to be discharged home later today. She states that her pain is well controlled with the p.o. pain medication. She denies chest pain, shortness of breath, fever, chills, sweats, numbness or tingling in her left lower extremity. Also denies nausea, vomiting diarrhea or difficulty voiding. Review of Systems Review of Systems: All systems reviewed & are unremarkable except as noted in HPI & below Physical Exam Physical Exam: Knee: Outer dressing was removed. Silverlon is clean dry and intact. Patient is able to actively perform a straight leg raise test. She is able to actively dorsi and plantarflex her foot. Active knee flexion is limited to about 85 degrees. There is moderate edema and some ecchymosis over the medial lateral aspect of her knee. There is no erythema or warmth. Quad strength is 3 out of 5. Patient is neurovascularly intact. Results & Data ([facility]) Vital Signs (Past 12 Hours) Vital Signs Temp Pulse Resp BP Pulse Ox O2 Del Method 06/20/22 07:35 36.5 C 56 L 16 138/66 98 Room Air 06/20/22 04:24 36.5 C 61 18 94/55 L 97 Room Air 06/20/22 00:10 36.7 C 60 18 99/60 L 95 Room Air Diagnostic Findings Laboratory Results WBC 15.65 K/ul (4.8-10.8) H 06/20/22 06:22 RBC 4.33 M/uL (3.93-5.22) 06/20/22 06:22 Hgb 12.4 g/dl (12.0-16.0) 06/20/22 06:22 Hct 37.4 % (34.1-44.9) 06/20/22 06:22 MCV 86.4 fL (80.0-100.0) 06/20/22 06:22 MCH 28.6 pg (25.0-34.0) 06/20/22 06:22 MCHC 33.2 g/dL (32.0-36.0) 06/20/22 06:22 RDW Std Deviation 40.6 fL (36.4-46.3) 06/20/22 06:22 RDW Coeff of Eric 12.9 % (11.5-14.5) 06/20/22 06:22 Plt Count 220 K/uL (130-400) 06/20/22 06:22 MPV 11.5 fL (9.4-12.3) 06/20/22 06:22 Sodium 138 mmol/L (136-145) 06/20/22 06:22 Potassium 4.0 mmol/L (3.5-5.1) 06/20/22 06:22 Chloride 107 mmol/L (98-107) 06/20/22 06:22 Carbon Dioxide 23 mmol/L (21-32) 06/20/22 06:22 Anion Gap 8 (3-11) 06/20/22 06:22 BUN 18 mg/dl (6-23) 06/20/22 06:22 Creatinine 0.82 mg/dl (0.6-1.2) 06/20/22 06:22 Est Cr Clr Drug Dosing 75.0 ml/min 06/20/22 06:22 Est GFR ( Amer) 83.4 ml/min 06/20/22 06:22 Est GFR (Non-Af Amer) 72.0 ml/min 06/20/22 06:22 BUN/Creatinine Ratio 22.0 (10-20) H 06/20/22 06:22 Glucose 99 mg/dl (70-99(Fasting)) 06/20/22 06:22 Calcium 8.7 mg/dl (8.5-10.1) 06/20/22 06:22 SARS-CoV-2, RNA, NAAT NEGATIVE (NEGATIVE) 06/19/22 06:15 Impressions Knee X-Ray 06/19/22 10:19 TWO VIEWS LEFT KNEE CLINICAL HISTORY: Postoperative examination. FINDINGS: AP and crosstable lateral portable views of the left knee are obtained. A left knee arthroplasty is in near anatomic alignment. There has been undersurface remodeling of the patella. No acute fracture is seen. There are expected postoperative changes around the knee including soft tissue edema, and subcutaneous gas. IMPRESSION: Expected postoperative changes status post left knee arthroplasty. No acute fracture is seen. ACT 112: Negative or not required by law. Electronically signed by: Delroy Deras M.D. 06/19/2022 11:08 AM
--- NOTE | 2022-06-20 16:47 | Discharge Summary ---
Date of Service June 20, 2022 Admission HPI Per Admitting Provider History of Present Illness (including history relevant to procedure): This 72-year-old female presents to clinic today for preoperative history and physical. Patient states that she is having significant left knee pain localized over the medial aspect for about the past 3 years. She states that over the past several months the pain has increased considerably. She denies any injury to the knee. She states that she had a right knee replacement performed by Dr. Salbador trevino in 2019 and feels that the left knee feels similar to the pain she experienced in her right knee before the replacement surgery. Patient states that she lives in [place] during the winter months but during summer has a home in [place]. She states she has done some therapy on the knee received corticosteroid injections and use [id number] anti- inflammatory agents without any relief for pain. Patient would like to proceed with surgical intervention at this time. Review Of Systems: A 12 point review of systems is performed and is unremarkable except for those things stated in the HPI and past medical history. Past Medical History: Problems: Left lumbar radiculopathy History of bunionectomy Arthritis of first metatarsophalangeal (MTP) joint of right foot Left knee pain Right knee pain Allergic rhinitis IT band syndrome S/P total knee replacement Infected cyst of skin Changing skin lesion Milia OA (osteoarthritis) of knee Toe fracture Epicondylitis Knee pain Osteopenia SHOULDER PAIN Diverticulosis Vision problems Cervical ca ASTHMA Procedure History Procedure Procedure Date Comments FNA Breast hysterectomy cornea replacements - X2: 2007 & 2008 Mammogram - wnl/repeat 1 yr MRI of lumbar spine 04/18/2022 - Impression: 1. No acute fracture. 2. Grade 1 anterolisthesis L4 on L5 secondary to sever facet arthrosis. Additionally, there is moderate central canal stenosis at this interspace with mild right and mild to moderate left neural foraminal narrowing. 3. Additional discogenic degeneration with spondylitic spurring and facet arthrosis as above. Plain X-ray of lumbar spine 02/12/2022 - Impression: 1. No acute fracture of the lumbar spine. 2. Levoscoliosis with demineralized appearance of the bones. 3. Grade 1 anterolisthesis of L4 on L5 is likely secondary to chronic facet arthrosis. Colonoscopy 10/23/2021 - COLO to cecum, left colon diverticulosis, 4 mm distal rectal polyp CF DEXA - dual energy X-ray absorptiometry 08/13/2021 - AP Spine L1-L4 -1.9DualFemur Total Mean -1.8 Mammogram 06/24/2021 Shave biopsy of skin 05/29/2021 Mammogram 06/21/2020 - ACR BI RADS CAT 2 BENIGN Shave biopsy and cauterization of skin 05/08/2020 - A. Right medial breastB. Presternal areaC. right chestD. Right clavicular area RIGHT TOTAL KNEE ARTHROPLASTY 08/30/2019 - Post Op Diagnosis: Osteoarthritis of knee, right knee Bilateral Digital Screening Mammogram Tomosynthesis with CAD 06/16/2019 - Impression: ACR BI RADS CATEGORY 1: NegativeThere is no mammographic evidence of malignancy. A 1 year screening mammogram is recommended. Audiometry 05/23/2019 - A mild to moderate SNHL above 3 KHz in the left ear and a mild to moderate SNHL above 1.5 KHz in the right ear. Word recognition scores were excellent bilaterally. Shave biopsy and cauterization of skin 03/22/2019 H/O: surgery- minescus repair R knee 12/2018 DXA BONE DENSITY STUDY 08/17/2018 - With a Z score of 0.1 this patient's BMD is considered within normal limits relative to their age. Even so, they may be considered osteopenic or osteoporotic which is normal for this age. Mammogram 06/10/2018 - There is no mammographic evidence of malignancy. A 1yr screening mammogram is recommended. Audiogram 05/17/2018 - findings:audiometry a mild to moderate SNHL above 3KHz in the left ear and a mild to moderate SNHL above 1.5 KHz in the right ear. word recognition scores were excellent bilaterally. She has significant high frequency SNHL with limited social difficulties. She would likely benefit from amplification, but does not find it necessary at this time MRI of foot 08/17/2017 - 1. there is marrow edema identified in the base and proximal shaft of the fifth metatarsal. this is deep to the cutaneous marker and likely represents a stress reaction/non-distracted stress fracture.2. finding suggest mild plantar faciitis involving the medial bundle of the plantar facia3. there is tendinopat hy with mild partical thickness tearing of the peroneus longus tendon4. Arthritic change in the midfoot as above, greatest at the second and third tarsometatarsal joints Colonoscopy 06/05/2016 - serrated follow up; five year follow up recommended Mammogram 05/28/2015 - negative, one year follow up recommended Arthroscopy of knee 2011 - Left Colonoscopy 11/16/2011 Allergies and Sensitivities: meloxicam(Possible face swelling, rash, itching) Horses(asthma) Animal dander(asthma) Social history: Completely unremarkable Family history: Lung cancer and heart disease Current Home Meds: (Last Updated 06/04 09:03) acetaminophen PRN albuterol (ProAir HFA 90 mcg/inh inhalation aerosol) 2 puff inhaled qid PRN: as needed for wheezing calcium and vitamin D combination (Calcium 600+D) 1 tab PO bid fluticasone-salmeterol (fluticasone-salmeterol Diskus 500 mcg-50 mcg) USE 1 INHALATION TWICE A DAY prednisoLONE ophthalmic (Pred Forte) 1 drop both eyes Daily rizatriptan (Maxalt 10 mg oral tablet) 10 mg PO ONCE PRN: as needed for migraine headache rosuvastatin (rosuvastatin 10 mg oral tablet) 10 mg PO qhs unknown medication (fiber pill) Initial Wt: 06/04 90.3 kg 199 lb Admission Exam Per Admitting Provider Physical Exam: (relevant to the procedure, including heart and lung evaluation) General: Oriented x3 with proper grooming and hygiene Eyes: Pupils are equal react to light with accommodation. Extraocular movements are intact Throat: Deferred due to COVID-19 precautions Cardiac: Regular rate and rhythm with no murmurs or gallops appreciated Lungs: Clear to auscultation throughout with no wheezing, rales or rhonchi Abdomen: Mildly obese, nondistended, nontender with NABS Extremities: Left knee; range of motion is from 0 degrees of extension to 130 degrees of flexion. There is audible crepitation with passive range of motion. Patient experiences medial joint line tenderness when knee is palpated in flexed position. Her patella is not mobile due to arthritic change within the patellofemoral joint. She has no varus or valgus laxity with stressing. AP drawer sign and Luz Marina test are negative. Patient is neurovascular intact in left lower extremity. Neuro: Cranial nerves II through XII are intact no motor or sensory deficit Skin: Normal appearance with no open skin areas or discharge Principal Diagnosis Left knee osteoarthritis Discharge Exam Knee: Outer dressing was removed. Silverlon is clean dry and intact. Patient is able to actively perform a straight leg raise test. She is able to actively dorsi and plantarflex her foot. Active knee flexion is limited to about 85 degrees. There is moderate edema and some ecchymosis over the medial lateral aspect of her knee. There is no erythema or warmth. Quad strength is 3 out of 5. Patient is neurovascularly intact. Discharge Data Allergies Allergy/AdvReac Type Severity Reaction Status Date / Time meloxicam Allergy Severe DRESS Verified 06/19/22 06:23 syndrome Procedures Performed Operation Date: 06/19/22 08:15 Actual Procedures p Left Total Knee Arthroplasty, Cemented(Left) - Mu Franklin MD Ordered Studies 06/19/22 05:00 US - OR guided needle placemen Routine Hospital Course (1) S/P total knee arthroplasty: Uneventful overnight stay following Left TKA. D/C home today with inhome PT starting Thursday. Patient very pleased with results of surgery PT/OT Weightbearing as tolerated with walker assist assist in immobilizer for the first 48 hours. DVT prophylaxis with VITALIY stockings and aspirin Ice with easy wrap Keep Silverlon dressing intact Pain control with p.o. medication Plan is for discharge home later today with in-home physical therapy for the first 2 weeks postoperatively Follow-up at [facility] orthopedics as previously scheduled With questions contact our clinic at [phone] Total Time Total Time Spent Total Time Spent (In Minutes): 20 mins Discharge Plan Discharge Items Patient Disposition: Home - Home Health Services Reason For Visit: Left Knee Osteoarthritis Discharge Diagnosis: Left knee osteoarthritis Activity: As commented below Lifting: None Bathing: Keep incision dry Bathing Comment: may shower tomorrow Sexual Activity: Wait until after follow-up appointment Exercise/Sports: Wait until after follow-up appointment Driving/Machine Use: no driving until cleared by agricultural systems specialist Weightbearing: Left weightbearing Weightbearing Comment: as tolerated with walker assistance and immobilizer for 48 hrs Non-emergency contact: Surgeon Call non-emergency contact if: you have any medication questions, your pain is not controlled, your temperature is above 101.5, your wound has increased drainage and your wound pain has increased Follow-up/Referrals: Ricki Simons DO [Primary Care Provider] - Diet: Regular Addtl Attending Provider Instructions: Post-operative Instructions Dear Patient and Family/Friends, Before you are discharged from the hospital, it is important to know what to expect when you get home after surgery. To that end, we have created this sheet of discharge instructions which covers many commonly asked questions. Make sure you go through this sheet in its entirety with your nurse before you are discharged. Please note that we will go over the specifics of your surgery and recovery when you return for your first post-operative visit. Sincerely, Dr. Franklin Medications 1. Oxycodone 5 mg: take 1-2 tab every 4-6 hours as needed for pain control. A prescription for this will be sent to your pharmacy. 2. Diclofenac Sodium 75 mg: take 1 tab twice daily for the first 30 days post operatively for pain and inflammation relief. A prescription with 1 refill will be sent to your pharmacy. 3. Aspirin 81 mg: take 1 tab twice daily for the first 30 days post operatively for blood clot prevention. Please purchase. 4. Extra Strength Tylenol 500 mg: take 2 tabs every 6-8 hours as needed for additional pain relief. Please purchase. Pain Expect to be in a fair amount of pain after surgery. Remember, our goal is not to eliminate your pain, but to make it tolerable. It is a good idea to stay ahead of your pain by taking the medications you were prescribed once you get home. Typically, the pain starts improving 3-7 days after surgery. You should start weaning off the narcotic pain medication (oxycodone, hydrocodone, hydromorphone, morphine) as soon as your pain improves. Please call our office if your pain is not adequately controlled. Ice Ice your operative site at least 5 times a day for 15-30 minutes at a time. Make sure you have a thin cloth between the ice or cooling unit and your skin to prevent conn bite. This is especially important if you received a nerve block. Continue icing your operative site for the first 5-7 days after surgery, then as needed. Diet/Nausea/Vomiting Start by drinking clear liquids and eating crackers. If you can tolerate this, then you may resume your normal diet. If you feel nauseated or vomit, take Zofran/ondansetron (if prescribed). Please call our office if you have intractable nausea or vomiting, or, if after hours, you may go to the Emergency Room for help. Constipation Constipation is a common side effect of narcotic pain medication. If you have not had a bowel movement within 2 days after surgery, we recommend purchasing an over the counter laxative such as Milk of Magnesia, Dulcolax, or Miralax from a local pharmacy, and taking it as instructed. Call our clinic if any questions. Slings and Braces If you were placed in a sling or brace, it must be worn at all times, including sleep. You may remove your sling or brace for physical therapy, home exercises, and showering. The length of time you will be in your brace and range of motion restrictions depends on what surgery you had; these details will be reviewed at your first post-operative appointment. Nerve block The anesthesia team sometimes places a nerve block to help with post-operative pain control. This results in significant numbness and inability to move the extremity. The nerve block usually wears off in 8-12 hours, but sometimes can last up to 24 hours. Please call our office if you are still unable to move your extremity after 24 hours, unless you received a pain pump to take home. Nerve blocks typically wear off quickly, so start taking pain medication as soon as you start feeling soreness near your surgical site. Weight bearing and Range of Motion. Do not bear any weight through your operative extremity immediately after surgery. If you had upper extremity surgery, do not lift anything with that arm. If you are in a knee brace, keep it locked in place until your follow-up. We will discuss your weight bearing, range of motion, and lifting restrictions in detail at your first post-operative appointment. Continuous Passive Motion (CPM) Machine If you were prescribed a CPM machine, it will start after your first post- operative appointment, at which time we will give you instructions on the range of motion settings and duration of treatment Physical therapy You will be given a prescription for physical therapy or occupational therapy at your first post-operative appointment. Typically, patients start therapy within 1 week of surgery Wound care and showering We will inspect your wound at your first post-operative visit, and may do a dressing change at that time. Most patients will be in a water-proof dressing that is removed 14 days after surgery. It is normal to see some dried blood on the dressing. Do not remove your dressing, paper strips or sutures yourself unless you are given permission. Showering is allowed the day after surgery. Do not scrub or remove any dressings. The wound should not be submerged underwater (i.e. in a bathtub or pool) until 4 weeks after surgery VITALIY stockings If you were given white stockings, these are to be worn at all times except to shower (on both legs) for the first 2 weeks after surgery. Driving You may not drive while taking narcotic pain medication or while in a cast, splint, sling or brace. You, the patient, need to make the final determination about when you are safe to drive, however, the earliest you may consider driving after surgery is below: Hand/Wrist/Elbow Surgery: 3 days Shoulder Surgery: 2 weeks Hip,/Knee/Ankle Surgery: 4 weeks Fracture repair: 6 weeks Return to Work Your return to work depends on what surgery was done and what type of work you do. Please bring any paperwork your employer needs completed to your first post-operative visit. Also, bring a description of your job duties, as this helps us to understand what risks you may face at work. Travel Avoid long distance travel (greater than 1 hour) in airplanes and cars for the first 6 weeks after surgery. If you must travel, you need to have a Doppler ultrasound done before you travel to rule out a blood clot in your legs. Follow-up You should have a follow-up appointment already scheduled 1-2 days after surgery. If not, please contact our office to make this appointment before you leave the hospital. When to call the office It is normal to have swelling and bruising in the limb that was operated on. This will improve with time. It is also normal to have fevers for the first 2 days after surgery. Reasons you should call your doctor include: Uncontrolled pain; Nausea, vomiting, or constipation that does not improve with medication; Fevers over 101.5, chills, sweats; Drainage or bleeding from the wound; Foul odor; Spreading areas of redness; Any other concerns Pending Studies at Discharge: No Stand-Alone Forms: My [facility] Medications and DC Order Prescriptions: New aspirin 81 mg Tablet,Delayed Release (Dr/Ec) 81 mg PO BID 30 Days Qty: 60 0RF acetaminophen [Tylenol Extra Strength] 500 mg Tablet 1,000 mg PO Q8 30 Days Qty: 180 0RF oxycodone 5 mg tablet 5 mg PO Q4H Qty: 28 0RF Continued rizatriptan [Maxalt] 10 mg Tablet 10 mg PO UD PRN (Reason: Headache) prednisolone acetate [Pred Forte] 1 % Drops,Suspension 1 drp OPHTHALMIC (EYE) QAM fluticasone propion-salmeterol [Advair Diskus] 500-50 mcg/dose Blister With Device 1 inh INHALATION BID PRN (Reason: SHORT OF BREATH) calcium polycarbophil [Fiber-Lax] 625 mg Tablet 625 mg PO QAM albuterol sulfate [Proventil HFA] 90 mcg/actuation Hfa Aerosol Inhaler 2 puff INHALATION QID PRN (Reason: SHORT OF BREATH) Calcium 600 + D(3) 600 mg calcium- 200 unit Capsule 1 cap PO QAM Crestor 10 mg PO DAILY Discharge Orders: Discharge Order (Routine); Ordered 06/20/22 Ordered By: Chris Louise Admission Data Admit Date/Time: 06/19/22 10:16 Attending Provider: Mu Franklin Admit Provider: Mu Franklin Primary Care Provider: Ricki Simons Other Providers: [facility] Other Interventions: Discharge Summary Assessment (RN) Last Done: 06/20/22 13:33
[2022-06-20] MEDS ORDERED: CeleBREX 200 MG CAP PO SCH (21:00)
== END 2022-06-20 14:27 | disposition home health service (06) ==
LOC: 3E 06:09 → ASU 06:09